=== PATIENT | female | born 1960 | race Caucasian/White ===

== ENCOUNTER 2023-12-04 15:46 | Outpatient (REF) | payer OTHER, SELFPAY ==
[2023-12-04 16:48] LABS: Estimated Average Glucose 146 mg/dL; Hemoglobin A1c % 6.7 % (<6.0)
[2023-12-04 17:31] LABS: TSH reflex Free T4 0.42 uIU/mL (0.32-4.0)
== END 2023-12-04 15:47 | disposition home or self-care (01) ==
LOC: HO.LAB 15:46
PROVIDERS: PCP Family Medicine; Visit Provider Family Medicine
DX: Z00.00 Encounter for general adult medical examination without abnormal findings (principal); E11.21 Type 2 diabetes mellitus with diabetic nephropathy; E03.9 Hypothyroidism, unspecified
CPT/HCPCS: 36415; 83036; 84443

== ENCOUNTER 2024-04-25 09:48 | Outpatient (REF) | payer OTHER, SELFPAY ==
[2024-04-25 11:04] LABS: Estimated Glomerular Filt Rate > 60
== END 2024-04-25 09:49 | disposition home or self-care (01) ==
LOC: HO.LAB 09:48
PROVIDERS: PCP Family Medicine; Visit Provider Physician Assistant Medical
DX: E11.9 Type 2 diabetes mellitus without complications (principal)
CPT/HCPCS: 36415; 82565

== ENCOUNTER 2024-05-24 09:02 | Outpatient (REF) | payer OTHER, SELFPAY ==
--- OUTSIDE RECORDS SUMMARY | 2024-05-24 09:11 | XMS_ITS ---
Author Organization [facility] Address [address] [place] [address] Care Team Providers Care Adjutant General Name Role Phone Vicente VALERA, Sabrina Primary Care Provider Dayanara Moreira [phone] REASON FOR VISIT cx ACETYLENE BURNER 11/04 Encounters Encounter Location Date Provider Diagnosis [facility] [address] [place] [address] 09/19/2023 Dayanara Tolentino Plan Of Treatment No Information Progress Notes * Irma MOOREDOB:1960 ( 63 yo F)Acc No.[id number]:09/19/2023 Patient:?Irma Moore :1960???Age:63 Y???Sex:Female Address:[address] [place] [address] * true * Date:? Generated for Mark haney/Amish/eTransmitting on:?05/24/2024 09:11 AM EST
--- OUTSIDE RECORDS SUMMARY | 2024-05-24 09:11 | XMS_ITS ---
Author Organization [facility] Address [address] [place] [address] Care Team Providers Care Watch Parts Inspector Name Role Phone Vicente VALERA, Sabrina Primary Care Provider Dayanara Moreira [phone] Encounters Encounter Location Date Provider Diagnosis [facility] [address] [place] [address] 11/05/2023 Dayanara Tolentino Plan Of Treatment No Information Progress Notes * Irma MOOREDOB:1960 ( 63 yo F)Acc No.[id number]:11/05/2023 Progress Notes Patient:?Irma MOORE Provider:?Dayanara Tolentino DPM :1960???Age:63 Y???Sex:Female D ate:11/05/2023 Address:[address] [place], [place] [id number] Pcp:Sabrina Zhang MD Subjective: * Chief Complaints: * ??? * Medical History:? Objective: * Vitals:? Assessment: Plan: * Treatment: * Images: * The named appointment provid er may or may not be the originator of this progress note, and it is not deemed complete until electronically signed by the appointment provider. Sign off status: Pending * Provider:?Dayanara Tolentino DPM Date:?2023 Generated for Mark haney/Amish/eTransmitting on:?05/24/2024 09:11 AM EST
--- OUTSIDE RECORDS SUMMARY | 2024-05-24 09:11 | XMS_ITS | Continuity of Care Document ---
Author Organization [facility] Address [address] [place] [address]- Care Team Providers Care Trim Operator Name Role Phone Vicente VALERA, Sabrina Harris Primary Care Physician Encounter [facility] Date(s): 03/27/24 - 04/26/24 [facility] [address] [place] [address] En[facility] Type: Triage Allergies, Adverse Reactions, Alerts No Known Allergies Medications Aspirin Tablet Refills 0, Maintenance, 11/01/16 7:52:32 AM EDT Start Date: 11/01/16 Status: Ordered Repeat number: 1 atorvastatin 40 mg oral tablet 1 tablet = 40 mg, By Mouth, Daily, 0 Refills, Maintenance Start Date: 11/01/16 Status: Ordered Repeat number: 1 FISH OIL FISH OIL, Refills 0, Tot. Refills 0, 02/17/08 1:04:18 PM EDT Start Date: 02/17/08 Status: Ordered Repeat number: 1 Fish Oil By Mouth, 0 Refills, Maintenance, 11/01/16 7:52:40 AM EDT Start Date: 11/01/16 Status: Ordered Repeat number: 1 Insulin Aspart FlexPen 100 units/mL injectable solution See Instructions, USE 26-30 UNITS SUBCUTANEOUSLY 3 TIMES A DAY BEFORE MEALS, # 30 mL, 5 Refills, Maintenance, 11/01/23 5:15:00 PM EDT, [facility] # 302, 158.75, cm, 11/01/23 15:37:00 EDT, Height Start Date: 11/01/23 Status: Ordered Quantity: 30.0 Unit: mL Repeat number: 6 levothyroxine 150 mcg (0.15 mg) oral tablet 1 tablet = 150 mcg, By Mouth, Daily, 0 Refills, Maintenance, 11/01/16 7:52:09 AM EDT Start Date: 11/01/16 Status: Ordered Repeat number: 1 lisinopril 20 mg oral tablet 1, tablet, By Mouth, Daily, # 90 tablet, Refills 1, Tot. Refills 1, 01/20/22 11:42:00 AM EDT, Route to Pharmacy Electronically, [facility] # 302, 158.75, cm, 10/04/21 15:12:00 EDT, Height Start Date: 01/20/22 Status: Ordered Quantity: 90.0 Unit: tablet Repeat number: 2 MetFORMIN (Eqv-Glucophage XR) 500 mg oral tablet, extended release 2 tablet, By Mouth, 2 times a day, ( IC FOR GLUCOPHAGE XR), # 120 tablet, 0 Refills, Maintenance, 03/24/24 9:53:00 AM EDT, [facility] #[id number], 158.75, cm, 11/01/23 15:37:00 EDT, Height Start Date: 03/24/24 Status: Ordered Quantity: 120.0 Unit: tablet Repeat number: 1 Toujeo SoloStar 300 units/mL subcutaneous solution See Instructions, 122 units Subcutaneous Injection Daily 90 days. E11.9, # 40.5 mL, 3 Refills, Maintenance, 11/01/23 5:13:00 PM EDT, Solution, [facility] # 302, 158.75, cm, 11/01/23 15:37:00 EDT, Height Start Date: 11/01/23 Status: Ordered Quantity: 40.5 Unit: mL Repeat number: 4 True metric test strips True metric test strips, See Instructions, # 120 each, Refills 11, Tot. Refills 11, Maintenance, Ptto check blood sugar 4x daily as directed for dx of E11.65, 09/06/22 1:36:00 PM EDT, Compound, 158.75, cm, 02/28/22 9:26:00 EDT, Height Start Date: 09/06/22 Status: Ordered Quantity: 120.0 Unit: each Repeat number: 12 True Metrix Blood Glucose Test In Vitro Strip True Metrix Blood Glucose Test In Vitro Strip, See Instructions, # 100 Unknown, 0 Refills, Maintenance, use to check blood sugar 4 times daily as directed, 12/15/23 1:48:00 PM EDT, 158.75, cm, 11/01/23 15:37:00 EDT, Height Start Date: 12/15/23 Status: Ordered Quantity: 100.0 Unit: Unknown Repeat number: 1 True Metrix Blood Glucose Test In Vitro Strip True Metrix Blood Glucose Test In Vitro Strip, See Instructions, # 100 Unknown, 0 Refills, Maintenance, use to check blood sugar 4 times daily as directed, 03/28/24 11:50:00 AM EDT, 158.75, cm, 11/01/23 15:37:00 EDT, Height Start Date: 03/28/24 Status: Ordered Quantity: 100.0 Unit: Unknown Repeat number: 1 True Metrix Blood Glucose Test In Vitro Strip True Metrix Blood Glucose Test In Vitro Strip, See Instructions, # 100 Unknown, 0 Refills, Maintenance, use to check blood sugar 4 times daily as directed, 02/15/24 7:39:00 PM EDT, 158.75, cm, 11/01/23 15:37:00 EDT, Height Start Date: 02/15/24 Status: Ordered Quantity: 100.0 Unit: Unknown Repeat number: 1 True Metrix Blood Glucose Test In Vitro Strip True Metrix Blood Glucose Test In Vitro Strip, See Instructions, # 100 Unknown, 0 Refills, Maintenance, use to check blood sugar 4 times daily as directed, 12/25/23 2:28:00 PM EDT, 158.75, cm, 11/01/23 15:37:00 EDT, Height Start Date: 12/25/23 Status: Ordered Quantity: 100.0 Unit: Unknown Repeat number: 1 True Metrix Blood Glucose Test In Vitro Strip True Metrix Blood Glucose Test In Vitro Strip, See Instructions, # 120 Unknown, 3 Refills, USE TO CHECK BLOOD SUGAR 4 TIMES A DAY DIRECTED, 158.75, cm, 10/04/21 15:12:00 EDT, Height Start Date: 01/17/22 Status: Ordered Quantity: 120.0 Unit: Unknown Repeat number: 1 True Metrix Blood Glucose Test In Vitro Strip True Metrix Blood Glucose Test In Vitro Strip, See Instructions, # 100 Unknown, 0 Refills, Maintenance, use to check blood sugar 4 times daily as directed, 11/12/23 2:52:00 PM EDT, 158.75, cm, 11/01/23 15:37:00 EDT, Height Start Date: 11/12/23 Status: Ordered Quantity: 100.0 Unit: Unknown Repeat number: 1 True metrix lancets True metrix lancets, See Instructions, # 120 each, Refills 11, Tot. Refills 11, Maintenance, Pt to check blood sugar 4x daily as directed for dx of E11.65, 02/28/22 11:59:00 AM EDT, Compound, 158.75, cm, 02/28/22 9:26:00 EDT, Height Start Date: 02/28/22 Status: Ordered Quantity: 120.0 Unit: each Repeat number: 12 TRUE PLUS PEN NEEDLES [id number] TRUE PLUS PEN NEEDLES [id number], See Instructions, # 150 each, Refills 6, Tot. Refills 6, Maintenance, Use pen needles to inject insulin 4x a day, E11.9, 07/05/20 1:37:00 PM EST, Supply, 158.75, cm, 01/22/20 8:55:00 EDT, Height Start Date: 07/05/20 Status: Ordered Quantity: 150.0 Unit: each Repeat number: 7 TRUEplus 5-Bevel Pen [place] Miscellaneous 31G X 5 MM TRUEplus 5-Bevel Pen [place] Miscellaneous 31G X 5 MM, See Instructions, # 200 Unknown, 6 Refills, Maintenance, USE PEN NEEDLE TO INJECT INSULIN UP TO FOUR TIMES A DAY, 07/10/22 3:40:00 PM EST, 158.75, cm, 02/28/22 9:26:00 EDT, Height Start Date: 07/10/22 Status: Ordered Quantity: 200.0 Unit: Unknown Repeat number: 1 Trulicity Pen 3 mg/0.5 mL subcutaneous solution See Instructions, inject 0.5ml subcutaneously every week, # 2 mL, 4 Refills, Maintenance, 03/27/24 12:40:00 PM EDT, [facility] # 302, 158.75, cm, 11/01/23 15:37:00 EDT, Height Start Date: 03/27/24 Status: Ordered Quantity: 2.0 Unit: mL Repeat number: 5 Problem List Condition Confirmation Course Effective Dates Status H ealth Status Informant Hyperlipidemia Confirmed Active Hypertension Confirmed Active Hypothyroidism Confirmed Active Severe obesity (BMI 35.0-39.9) with comorbidity Confirmed Active Type 2 diabetes mellitus Confirmed Active Patient Care team information Care Team Personnel Name: Sabrina Zhang MD Position: S Physician - Primary Care Member Role: PCP Address: [address] [place] [address] Telecom: Care Team Related Persons Name: VALENTIN MOORE Insurance Providers Guarantor name: ZOIEBETH MOORE [employer]ux Plan Information #: 1 Payer: [employer] NON HMO PLANS Member Number: NA Policy Number: NA Group Number: NA
--- OUTSIDE RECORDS SUMMARY | 2024-05-24 09:11 | XMS_ITS | Continuity of Care Document ---
Author Organization [facility] Address [address] [place] [address]- Care Team Providers Care Emd Special Education Teacher Name Role Phone Vicente VALERA, Sabrina Harris Primary Care Physician [phone] Encounter [facility] Date(s): 03/24/24 - 04/23/24 [facility] [address] [place] [address] Encounter Type: Triage Allergies, Adverse Reactions, Alerts [...] 5 Refills, Maintenance, 11/01/23 5:15:00 PM EDT, [facility] # [facility], 158.75, cm, 11/01/23 15:37:00 [...] 11:42:00 AM EDT, Route to Pharmacy Electronically, [facility] # 302, 158.75, cm, 10/04/21 15:12:00 EDT, Height Start Date: 01/20/22 Status: Ordered Quantity: 90.0 Unit: tablet Repeat number: 2 MetFORMIN (Eqv-Glucophage XR) 500 mg oral tablet, extended release 2 tablet, By Mouth, 2 times a day, ( IC FOR GLUCOPHAGE XR), # 120 tablet, 0 Refills, Maintenance, 03/24/24 9:53:00 AM EDT, [facility] #[id number], 158.75, cm, 11/01/23 15:37:00 EDT, Height Start Date: 03/24/24 Status: Ordered Quantity: 120.0 Unit: tablet Repeat number: 1 Toujeo SoloStar 300 units/mL subcutaneous solution See Instructions, 122 units Subcutaneous Injection Daily 90 days. E11.9, # 40.5 mL, 3 Refills, Maintenance, 11/01/23 5:13:00 PM EDT, Solution, [facility] # 302, 158.75, cm, 11/01/23 15:37:00 [...] Repeat number: 12 TRUE PLUS PEN NEEDLES [id number] TRUE PLUS PEN NEEDLES [id number], See Instructions, # 150 each, Refills 6, Tot. Refills 6, Maintenance, Use pen needles to inject insulin 4x a day, E11.9, 07/05/20 1:37:00 PM EST, Supply, 158.75, cm, 01/22/20 8:55:00 EDT, Height Start Date: 07/05/20 Status: Ordered Quantity: 150.0 Unit: each Repeat number: 7 TRUEplus 5-Bevel Pen [place] Miscellaneous 31G X 5 MM TRUEplus 5-Bevel Pen [place] Miscellaneous 31G X 5 MM, See Instructions, [...] 4 Refills, Maintenance, 03/27/24 12:40:00 PM EDT, [facility] # 302, 158.75, cm, 11/01/23 15:37:00 [...] - Primary Care Member Role: PCP Address: [address] [place] [address] Telecom: Care Team Related Persons Name: VALENTIN MOORE Insurance Providers Guarantor name: ZOIEBETH MOORE [employer] Plan Information #: 1 Payer: [employer] NON HMO PLANS Member Number: NA Policy Number: NA Group Number: NA
--- OUTSIDE RECORDS SUMMARY | 2024-05-24 09:11 | XMS_ITS | Patient Health Record ---
Author Organization [facility] Address [address] [place] [address] Care Team Providers Care Towboat Pilot Name Role Phone Vicente VALERA, Sabrina Primary Care Provider Dayanara Moreira Unavailable [phone] Reason For Referral No Information Encounters Encounter Location Date Provider Diagnosis [facility] [address] [place] [address] 09/19/2023 Dayanara Tolentino Plan Of Treatment No Information Insurance Providers Payer Name Payer Address Payer Phone Subscriber Number Group Number Insured Name Patient Relationship to Insured Coverage Start Date Coverage End Date [employer] [address] [place] [address] [id number] Irma Haji Self - patient is the insured
[2024-05-24 10:16] LABS: Estimated Average Glucose 151 mg/dL; Hemoglobin A1C 177.2658 umol/L; Hemoglobin A1c % 6.9 % (<6.0); Total Hemoglobin (HGBA1C) 3400.9381 umol/L
[2024-05-24 11:36] LABS: Alanine Aminotransferase 53 U/L (0-31); Anion Gap 15 (12-20); Aspartate Amino Transferase 49 U/L (5-31); Blood Urea Nitrogen 14 mg/dL (9-16); Calcium 9.6 mg/dL (8.4-10.2); Carbon Dioxide 25 mmol/L (22-29); Chloride 108 mmol/L (96-108); Cholesterol 143 mg/dL (<200); Estimated Glomerular Filt Rate > 60; Glucose Random 114 mg/dL (60-115); HDL Cholesterol 26 mg/dL (>40); LDL Cholesterol Calculated 70 mg/dL (<100); Potassium 4.8 mmol/L (3.3-5.1); Sodium 143 mmol/L (135-145); Triglycerides 237 mg/dL (<150)
[2024-05-24 11:42] LABS: TSH reflex Free T4 8.44 uIU/mL (0.32-4.0)
[2024-05-24 11:47] LABS: Vitamin B12 299 pg/mL (200-900)
[2024-05-24 12:29] LABS: Free T4 (Free Thyroxine) 1.12 ng/dL (0.71-1.85)
== END 2024-05-24 09:03 | disposition home or self-care (01) ==
LOC: HO.LAB 09:02
PROVIDERS: PCP Family Medicine; Visit Provider Family Medicine
DX: E78.00 Pure hypercholesterolemia, unspecified (principal); E11.21 Type 2 diabetes mellitus with diabetic nephropathy; E03.9 Hypothyroidism, unspecified
CPT/HCPCS: 36415; 80048; 80061; 82607; 83036; 84439; 84443; 84450; 84460

== ENCOUNTER 2024-07-17 15:50 | Outpatient (REF) | payer OTHER, SELFPAY ==
--- OUTSIDE RECORDS SUMMARY | 2024-07-17 16:44 | XMS_ITS ---
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 Generated for Mark haney/Amish/eTransmitting on:?07/17/2024 04:44 PM EST
--- OUTSIDE RECORDS SUMMARY | 2024-07-17 16:44 | XMS_ITS | Clinical Summary ---
Author Organization [facility] Address [address] [place] [address] Phone Care Team Providers Care National Van Owner Operator Name Role Phone Sabrina Zhang MD Primary Care Provider [phone] Allergies No known active allergies Medications magnesium 250 mg tablet Take by mouth. Activ e multivitamin (MULTIPLE VITAMINS ORAL) Take 1 Tab by mouth daily. Active zinc gluconate 30 mg tablet Take by mouth. Ac tive vitamin C tablet Take 1 Tablet by mouth daily Active atorvastatin (LIPITOR) 40 mg tablet TAKE ONE TABLET BY MOUTH ONCE DAILY Active cholecalciferol (VITAMIN D-3) 50 mcg (2,000 unit) tablet Take by mouth. Activ e insulin aspart (NovoLOG U-100 Insulin aspart) 100 unit/mL injection Inject 24 Units into the skin 3 times daily (before meals). Active insulin aspart (NovoLOG) 100 unit/mL injection Inject as directed. Active insulin glargine (LANTUS) 100 unit/mL injection 100 Units/mL. INJECT 78 UNIT BEDTIME Active insulin glargine U-300 (Toujeo SoloStar U-300 Insulin) 300 unit/mL (1.5 mL) CONCENTRATED injection pen Inject into the skin. Active levothyroxine (SYNTHROID, LEVOTHROID) 150 mcg tablet TAKE 1 TABLET BY MOUTH ONCE A DAY EXCEPT TAKE AN EXTRA 1/2 TABLET 3 TIMES A WEEK Active lisinopriL (PRINIVIL,ZESTRI L) 10 mg tablet 2 tablets (20 mg total). Active metFORMIN (GLUCOPHAGE) 500 mg tablet Take 1,000 mg by mouth 2 times daily. Active omega-3 acid ethyl esters (LOVAZA) 1 gram capsule Take 1,000 mg by mouth daily. Active polyethylene glycol (Golytely) 236-22.74-6.74 -5.86 gram solution Take 4L by mouth once for one dose. May substitue any PEG. Starting at 6PM the night before your procedure drink 1 8oz glasses at your own pace until you complete half of the gallon. Finish 2nd half of the gallon 5 hours before your procedure. 4000 mL 4 Active bisacodyL (DULCOLAX) 5 mg EC tablet Take 2 tablets by mouth right before beginning bowel prep. See instructions provided by the office 2 tablet 4 Active dulaglutide (Trulicity) 3 mg/0.5 mL pen injector injection Inject 0.5 mL (3 mg total) under the skin every 7 (seven) days. Active Active Problems Problem Noted Date Diagnosed Date Proteinuria 04/24/2018 Hypercholesterolemia 11/26/2017 Hypothyroidism 11/26/2017 Type 2 diabetes mellitus with renal manifestatio ns 11/26/2017 Internal hemorrhoids 06/24/2013 Stress incontinence in female 02/03/2013 Rectocele 05/13/2011 Dermatophytosis of nail 07/05/2010 Encounters Date Type Department Care Team Description 04/28/2024 7:35 AM EST Anesthesia Event [facility] Endoscopy [address] [place] [address] Dylan Thomas MD McAdams, Megan, CRNA 04/28/2024 6:50 AM EST - 04/28/2024 11:59 PM EST Hospital Encounter [facility] Endoscopy [address] [place] [address] Kenisha Crews DO Piela, Robert C, MD Encounter for screening for malignant neoplasm of colon Discharge Disposition: Home or Self Care from Last 3 Months Immunizations Name Administration Dates Next Due Influenza trivalent, 0.5mL, preservative free (Fluarix; FluLaval; Fluzone) ages 6mo and older (Afluria) 3 years and older 03/04/2015 Pneumococcal polysaccharide 23 valent (Pneumovax 23) 2yo and older 07/26/2016 Tdap Tetanus diptheria acell ular pertussis (Boostrix; Adacel) 7yo and older 07/05/2010 Surgical History Surgery Date Site/Laterality Comments SECTION PROCEDURE: HISTORICAL HAND SHOE CUTTER SURGERY PROCEDURE: [place] UNLISTED PROCEDURE HANDS/FINGERS; COMMENT: TRIGGER FINGER RELEASE. WISDOM TOOTH EXTRACTION PROCEDURE: HISTORICAL WISDOM TEETH EXTRACTION Medical History Medical History Date Comments Dermatophytosis of nail 07/05/2010 DX:[place] tophytosis of nail Hypercholesterolemia 11/26/2017 DX:Hypercho lesterolemia Hypothyroidism 11/26/2017 DX:Hypothyroidis m Internal hemorrhoids 06/24/2013 DX:Internal hemorrhoids Rectocele 05/13/2011 DX:Rectocele Stress incontinence in female 02/03/2013 DX :Stress incontinence in female Proteinuria 04/24/2018 DX:Proteinuria Type 2 diabetes mellitus wit h renal manifestations (CMS/HCC) 11/26/2017 DX:Type 2 diabetes mellitus with renal manifestations (HCC) Family History Medical History Relation Name Comments Diabetes Brother 1 Diabetes Brother 2 Brain cancer Brother 3 Heart attack Father diabetes,CAD, Diabetes Maternal Grandmother Stroke Mother DIABETES, HTN Diabetes Sister Relation Name Status Comments Brother 1 Alive Brother 2 Alive Brother 3 Father Maternal Grandfather Maternal Grandmother Mother Paternal Grandfather Paternal Grandmother Sister Alive Social History Tobacco Use Types Packs/Day Years Used Date Smoking Tobacco: Never Smokeless Tobacco: Never Alcohol Use Standard Drinks/Week Comments No 0 (1 standard drink = 0.6 oz pur e alcohol) Interpersonal Safety Answer Date Record ed Physical Abuse 04/28/2024 Verbal Abuse 04/28/2024 Comments No Sex and Gender Information Value Date Recorded Sex Assigned at Not on file Legal Sex Female 8:25 PM EST Gender Identity Not on file Sexual Orientation Not on file Obstetrics History Last Filed Vital Signs Vital Sign Reading Time Taken Comments Blood Pressure 131/66 04/28/2024 8:13 AM EST Pulse 91 04/28/2024 8:13 AM EST Temperature 36.4 ??C (97.6 ??F) 04/28/2024 7:24 AM ES T Respiratory Rate 17 04/28/2024 8:13 AM EST Oxygen Saturation 96% 04/28/2024 8:13 AM EST Inhaled Oxygen Concentration - - Weight 97.5 kg (215 lb) 04/28/2024 7:24 AM EST Height 160 cm (5' 3 ) 04/28/2024 7:24 AM EST Body Mass Index 38.09 04/28/2024 7:24 AM EST Plan of Treatment Health Maintenance Due Date Last Done Comments Diabetes: Annual GFR (Glomerular Filtration Rate) 1960 Diabetes: Annual Foot Exam 1970 Diabetes: Annual Retina Eye Exam 1970 Pneumococcal Vaccine: 50+ Years (2 of 2 - PCV) 07/26/2017 07/26/2016 Pneumococcal Vaccine: Pediatrics (0 to 5 Years) and At-Risk Patients (6 to 64 Years) (2 of 2 - PCV) 07/26/2017 07/26/2016 Cervical Cancer Screening: Pap Smear 03/27/2020 03/27/2017 RSV Immunization Patients 60+ Years Old (1 - Risk 60-74 years 1-dose series) 2020 Cholesterol Screening (Lipid Panel) 04/29/2022 Depression Screening 04/29/2022 HIV Screening 04/29/2022 Hepatitis C Screening 04/29/2022 Social Influencers of Health Screening 04/29/2022 Diabetes: Annual Urine Albumin-Creatinine Ratio (uACR) 05/13/2022 Diabetes: Blood Sugar Control Test (HGBA1C) 05/13/2022 COVID-19 Vaccine ( season) 2024 Influenza Vaccine (#1) 2024 , 05/16/2022, 02/09/2021, Additional history exists Hypertension/CHF/CAD Annual BMP Blood Test 04/28/2024 Breast Cancer Screening 02/06/2026 02/07/20 24, 01/01/2023, 08/24/2021, Additional history exists Colorectal Cancer Screening: Colonoscopy 04/28/2027 04/28/2024 DTaP,Tdap,and Td Vaccines (3 - Td or Tdap) 11/27/2032 11/27/2022, 07/05/2010 Zoster Vaccines Completed 06/22/2023, 04/06/2023 HIB Vaccines Aged Out No longer eligi ble based on patient's age to complete this topic HPV Vaccines Aged Out No longer eligi ble based on patient's age to complete this topic Hepatitis A Vaccines Aged Out No long er eligible based on patient's age to complete this topic Hepatitis B Vaccines Aged Out No long er eligible based on patient's age to complete this topic IPV Vaccines Aged Out No longer eligi ble based on patient's age to complete this topic MMR Vaccines Aged Out No longer eligi ble based on patient's age to complete this topic Meningococcal ACWY Vaccine Aged Out N o longer eligible based on patient's age to complete this topic Meningococcal B Vacine Aged Out No lo nger eligible based on patient's age to complete this topic RSV Immunization Patients Under 20 months Aged Out No longer eligible based on patient's age to complete this topic Varicella Vaccines Aged Out No longer eligible based on patient's age to complete this topic Procedures Procedure Name Priority Date/Time Associated Diagnosis Comments COLONOSCOPY Routine 04/28/2024 7:52 AM EST Encounter for screening for malignant neoplasm of colon TISSUE EXAM Routine 04/28/2024 7:44 AM EST Encounter for screening for malignant neoplasm of colon ALEX SCREENING DIGITAL Routine 02/07/2024 9:06 AM EDT Encounter for screening mammogram for malignant neoplasm of breast HM PAP SMEAR Routine 03/27/2017 from Last 3 Months or Most Recently Relevant to Health Maintenance Results * COLONOSCOPY Anesthesia - MAC; [facility] ENDOSCOPY (04/28/2024 7:52 AM EST) Anatomical Region Laterality Modality Endoscopy 04/28/2024 7:37 AM EST Impressions 04/28/2024 7:52 AM EST - Hemorrhoids found on perianal exam. ? - Three 7 to 10 mm polyps in the ascending colon, ? removed with a cold snare. Resected and retrieved. ? - The entire examined colon is normal on direct and ? retroflexion views. Recommendation: ?- - Discharge patient to home. ? - High fiber diet. ? - Continue present medications. ? - Await pathology results. ? - Repeat colonoscopy for surveillance based on ? pathology results. Narrative 04/28/2024 7:52 AM EST [facility] GI Patient Name: Zoie Moore Procedure Date: 04/28/2024 7:37 AM Date of : 1960 Age: 63 Gender: Female Note Status: Finalized Attending MD: Kenisha Crews DO, [id number] Procedure Date No Time: 04/28/2024 Procedure: ? Colonoscopy Indications: ? Screening for colorectal malignant neoplasm Providers: ? Kenisha Crews DO Referring MD: ?Kenisha Crews DO Medicines: ? Monitored Anesthesia Care Complications: ? No immediate complications. Estimated blood loss: ? Minimal. Estimated Blood Loss: ? Estimated blood loss was minimal. Procedure: ? Pre-Anesthesia Assessment: ? - - Prior to the procedure, a History and Physical was ? performed, and patient medications and allergies were ? reviewed. The patient is competent. The risks and ? benefits of the procedure and the sedation options and ? risks were discussed with the patient. All questions ? were answered and informed consent was obtained. ? Patient identification and proposed procedure were ? verified by the physician, the nurse, the ? anesthesiologist, the diabetes solutions specialist and the video game technician ? in the pre-procedure area in the endoscopy suite. ? Mental Status Examination: alert and oriented. Airway ? Examination: normal oropharyngeal airway and neck ? mobility. Respiratory Examination: clear to ? auscultation. CV Examination: normal. Prophylactic ? Antibiotics: The patient does not require prophylactic ? antibiotics. Prior Anticoagulants: The patient has ? taken no anticoagulant or antiplatelet agents. ASA ? Grade Assessment: II - A patient with severe systemic ? disease. After reviewing the risks and benefits, the ? patient was deemed in satisfactory condition to ? undergo the procedure. The anesthesia plan was to use ? monitored anesthesia care (MAC). Immediately prior to ? administration of medications, the patient was ? re-assessed for adequacy to receive sedatives. The ? heart rate, respiratory rate, oxygen saturations, ? blood pressure, adequacy of pulmonary ventilation, and ? response to care were monitored throughout the ? procedure. The physical status of the patient was ? re-assessed after the procedure. ? After I obtained informed consent, the scope was ? passed under direct vision. Throughout the procedure, ? the patient's blood pressure, pulse, and oxygen ? saturations were monitored continuously. The ? Colonoscope was introduced through the anus and ? advanced to the cecum, identified by appendiceal ? orifice and ileocecal valve. The colonoscopy was ? performed without difficulty. The patient tolerated ? the procedure well. The quality of the bowel ? preparation was good. Findings: ?Hemorrhoids were found on perianal exam. ? Three sessile polyps were found in the ascending ? colon. The polyps were 7 to 10 mm in size. These ? polyps were removed with a cold snare. Resection and ? retrieval were complete. Estimated blood loss was ? minimal. ? The entire examined colon appeared normal on direct ? and retroflexion views. Procedure Code(s): ? --- Professional --- ? 21188, Colonoscopy, flexible; with removal of ? tumor(s), polyp(s), or other lesion(s) by snare ? technique Diagnosis Code(s): ? --- Professional --- ? Z12.11, Encounter for screening for malignant neoplasm ? of colon ? K64.9, Unspecified hemorrhoids ? D12.2, Benign neoplasm of ascending colon CPT copyright 2020 [employer]. All rights reserved. The codes documented in this report are preliminary and upon orthopedic coder review may be revised to meet current compliance requirements. KENISHA Crews DO 04/28/2024 7:52:14 AM This report has been signed electronically.Kenisha Crews DO Number of Addenda: 0 Note Initiated On: 04/28/2024 7:37 AM Scope Withdrawal Time: 0 hours 6 minutes 31 seconds Scope In: 7:41:16 AM Scope Out: 7:50:56 AM ? Endoscopy Department at [facility] - [address] [place] [address], ? [place] [address] Procedure Note Kenisha Crews DO - 04/28/2024 [facility] GI Patient Name: Zoie Moore Procedure Date: 04/28/2024 7:37 AM Date of : 1960 Age: 63 Gender: Female Note Status: Finalized Attending MD: Kenisha Crews DO, [id number] Procedure Date No Time: 04/28/2024 Procedure: Colonoscopy Indications: Screening for colorectal malignant neoplasm Providers: Kenisha Crews DO Referring MD: Kenisha Crews DO Medicines: Monitored Anesthesia Care Complications: No immediate complications. Estimated blood loss: Minimal. Estimated Blood Loss: Estimated blood loss was minimal. Procedure: Pre-Anesthesia Assessment: - - Prior to the procedure, a History and Physicalwas performed, and patient medications and allergieswere reviewed. The patient is competent. The risks and benefits of the procedure and the sedation optionsand risks were discussed with the patient. Allquestions were answered and informed consent was obtained. Patient identification and proposed procedure were verified by the physician, the nurse, the anesthesiologist, the diabetes solutions specialist and thetechnician in the pre-procedure area in the endoscopy suite. Mental Status Examination: alert and oriented.Airway Examination: normal oropharyngeal airway and neck mobility. Respiratory Examination: clear to auscultation. CV Examination: normal. Prophylactic Antibiotics: The patient does not requireprophylactic antibiotics. Prior Anticoagulants: The patient has taken no anticoagulant or antiplatelet agents. ASA Grade Assessment: II - A patient with severesystemic disease. After reviewing the risks and benefits,the patient was deemed in satisfactory condition to undergo the procedure. The anesthesia plan was touse monitored anesthesia care (MAC). Immediately priorto administration of medications, the patient was re-assessed for adequacy to receive sedatives. The heart rate, respiratory rate, oxygen saturations, blood pressure, adequacy of pulmonary ventilation,and response to care were monitored throughout the procedure. The physical status of the patient was re-assessed after the procedure. After I obtained informed consent, the scope was passed under direct vision. Throughout theprocedure, the patient's blood pressure, pulse, and oxygen saturations were monitored continuously. The Colonoscope was introduced through the anus and advanced to the cecum, identified by appendiceal orifice and ileocecal valve. The colonoscopy was performed without difficulty. The patient tolerated the procedure well. The quality of the bowel preparation was good. Findings: Hemorrhoids were found on perianal exam. Three sessile polyps were found in the ascending colon. The polyps were 7 to 10 mm in size. These polyps were removed with a cold snare. Resectionand retrieval were complete. Estimated blood loss was minimal. The entire examined colon appeared normal on direct and retroflexion views. Procedure Code(s): --- Professional --- 70581, Colonoscopy, flexible; with removal of tumor(s), polyp(s), or other lesion(s) by snare technique Diagnosis Code(s): --- Professional --- Z12.11, Encounter for screening for malignantneoplasm of colon K64.9, Unspecified hemorrhoids D12.2, Benign neoplasm of ascending colon CPT copyright 2020 [employer]. All rights reserved. The codes documented in this report are preliminary and upon orthopedic coder reviewmay be revised to meet current compliance requirements. KENISHA Crews DO 04/28/2024 7:52:14 AM This report has been signed electronically.Kenisha Crews DO Number of Addenda: 0 Note Initiated On: 04/28/2024 7:37 AM Scope Withdrawal Time: 0 hours 6 minutes 31 seconds Scope In: 7:41:16 AM Scope Out: 7:50:56 AM Endoscopy Department at [facility] - [address] [place] [id number] IMPRESSION: - Hemorrhoids found on perianal exam. - Three 7 to 10 mm polyps in the ascending colon, removed with a cold snare. Resected andretrieved. - The entire examined colon is normal on direct and retroflexion views. Recommendation: - - Discharge patient to home. - High fiber diet. - Continue present medications. - Await pathology results. - Repeat colonoscopy for surveillance based on pathology results. Kenisha Crews DO GI~PROCEDURE ORDERABLES Final Re sult * Tissue exam (04/28/2024 7:44 AM EST) Final Diagnosis A. Large Intestine, Right/Ascendin g Colon, polyps x3: - Tubular adenoma(s). Note: Four of nine tissue pieces show adenomatous changes. 04/29/2024 9:48 AM EST [facility] Gross Description A. Large Intestine, Right/Ascendin g Colon, polyp X3: Labeled ascending colon polyp x 3 . Received in formalin are eight irregular tabares mucosal tissue fragments, ranging from 0.2 cm to 0.5 cm in greatest dimension, which are wrapped in paper and submitted in toto in two cassettes, three pieces and five pieces, respectively, multiple levels on each slide. RAYMUNDO 04/29/2024 9:48 AM EST [facility] Disclaimer Unless otherwise specified, all tissue is 10% NB formalin fixed and paraffin embedded. 04/29/2024 9:48 AM EST [facility] Tissue Ascending colon structure / Unknown 04/28/2024 7:44 AM EST 04/28/2024 10:47 AM EST us Kenisha Mars [facility] PATHOLOGY ORDERABLES Final R esult [facility] H[facility] LAB [address] [place] [address], * ALEX SCREENING DIGITAL (02/07/2024 9:06 AM EDT) Anatomical Region Laterality Modality Mammography 02/06/2024 12:2 2 PM EDT Narrative 02/07/2024 9:06 AM EDT [facility] Diagnostic Imaging Department [address] [place] [address] Patient: ??ZOIE MOORE ?/Age/Sex: 1960 - 63 - F Unit#: ??[id number] ? Location/Status: ??SPDIMAM/REG CLI ? Mnemonic/Ordering Site: ??DIGSC/SPMAM Ordering Physician: ??SABRINA ZHANG MD Alex Screening Digital - 02/06/24 - 1607 Report Status:Signed EXAM: Alex Screening Digital EXAM DATE AND TIME: 02/06/2024 4:07 PM HISTORY: ??Screening. COMPARISON: ??01/01/23, 08/24/21, 07/05/19 TECHNIQUE: Bilateral digital breast tomosynthesis was performed in the CC and MLO projections. Computer aided detection with Screen 3D 3.1 was employed. TISSUE DENSITY: a. The breasts are almost entirely fatty. FINDINGS: No suspicious masses, grouped microcalcifications, or areas of architectural distortion are seen. Skin calcifications are present. The vascularity is unremarkable. IMPRESSION: Stable mammographic appearance of the breasts. ??No evidence of malignancy is seen. A negative mammogram in the presence of a clinically suspicious palpable abnormality does not preclude the possibility of malignancy or alter the indications for biopsy. BI-RADS: ??Category 2: Benign RECOMMENDATION(S): 1: Routine screening mammogram BILATERAL in 1 year. Mammogram performed at [facility] [address] [place] [address] Dictating Physician: ??SUSAN MANUEL MD Electronically Signed by: ??SUSAN MANUEL MD Dic Date/Time: ??02/07/24904 Sign date/Time: ??02/07/24905 Procedure Note Susan Manuel MD - 03/12/2024 [facility] Diagnostic Imaging Department [address] [place] [address] Patient: ZOIE MOORE D.O.B./Age/Sex: 1960 - 63 - F Unit#: [id number] [facility] Mnemonic/Ordering Site: [facility] Ordering Physician: SABRINA ZHANG MD [facility] Screening Digital - 02/06/24 - 1607 Report Status:Signed EXAM: [facility] Screening Digital EXAM DATE AND TIME: 02/06/2024 4:07 PM HISTORY: Screening. COMPARISON: 01/01/23, 08/24/21, 07/05/19 TECHNIQUE: Bilateral digital breast tomosynthesis was performed in the CCand MLO projections. Computer aided detection with iCAD [employer] AI 3D 3.1was employed. TISSUE DENSITY: a. The breasts are almost entirely fatty. FINDINGS: No suspicious masses, grouped microcalcifications, or areas ofarchitectural distortion are seen. Skin calcifications are present. The vascularity is unremarkable. IMPRESSION: Stable mammographic appearance of the breasts. No evidence of malignancyis seen. A negative mammogram in the presence of a clinically suspicious palpable abnormality does not preclude the possibility of malignancy or alter the indications for biopsy. BI-RADS: Category 2: Benign RECOMMENDATION(S): 1: Routine screening mammogram BILATERAL in 1 year. Mammogram performed at [facility] [place] [address] Dictating Physician: SUSAN MANUEL MD Electronically Signed by: SUSAN MANUEL MD Dic Date/Time: 02/07/24 09 Sign date/Time: 02/07/24905 Sabrina Zhang MD IMG BI PROCEDURES Final Res ult * Hm Pap Smear (03/27/2017) HM Pap smear no interpretation abstracted Historical Provider HEALTH MAINTENANCE Final Result from Last 3 Months or Most Recently Relevant to Health Maintenance Insurance [employer] Care Teams National Van Owner Operator Relationship Specialty Start Date End Date Sabrina Zhang MD PCP - General Internal Medicine 04/16/24
--- OUTSIDE RECORDS SUMMARY | 2024-07-17 16:44 | XMS_ITS ---
Author Organization [facility] Address [address] [place] [address] Care Team Providers Care Agricultural Equipment Test Engineer Name Role Phone Vicente VALERA, Sabrina Primary Care Provider Dayanara Moreira [phone] Encounters Encounter Location Date Provider Diagnosis [facility] [address] [place] [address] 11/05/2023 Dayanara Tolentino Plan Of Treatment No Information Progress Notes * Irma MOOREDOB:1960 ( 64 yo F)Acc No.[id number]:11/05/2023 Progress Notes Patient:?Irma MOORE Provider:?Dayanara Tolentino DPM :1960???Age:63 Y???Sex:Female D ate:11/05/2023 Address:[address] [place], [place] [id number] Pcp:Sabrina Zhang MD Subjective: * Chief Complaints: [...] Tolentino DPM Date:?2023 Generated for Mark haney/Amish/eTransmitting on:?07/17/2024 04:44 PM EST
--- OUTSIDE RECORDS SUMMARY | 2024-07-17 16:45 | XMS_ITS | Patient Health Record ---
Author Organization [facility] Address [address] [place] [address] Care Team Providers Care Italian Teacher Name Role Phone Vicente VALERA, Sabrina Primary Care Provider Dayanara Moreira Unavailable [phone] Reason For Referral No Information Encounters Encounter Location Date Provider Diagnosis [facility] [address] [place] [address] 09/19/2023 Dayanara Tolentino Plan Of Treatment No Information Insurance Providers Payer Name Payer Address Payer Phone Subscriber Number Group Number Insured Name Patient Relationship to Insured Coverage Start Date Coverage End Date [employer] [address] [place] [phone] [id number] Irma Haji Self - patient is the insured
== END 2024-07-17 15:51 | disposition home or self-care (01) ==
LOC: HO.LAB 15:50
PROVIDERS: PCP Family Medicine; Visit Provider Family Medicine
DX: E03.9 Hypothyroidism, unspecified (principal)
CPT/HCPCS: 36415; 84443

== ENCOUNTER 2024-08-04 07:54 | Outpatient (REF) | payer OTHER, SELFPAY ==
--- OUTSIDE RECORDS SUMMARY | 2024-08-04 10:11 | XMS_ITS | Clinical Summary ---
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 WISDOM TOOTH EXTRACTION PROCEDURE: HISTORICAL WISDOM TEETH EXTRACTION Medical History Medical History Date Comments Dermatophytosis of nail 07/05/2010 DX:[place] tophytosis of nail Hypercholesterolemia 11/26/2017 DX:Hypercho lesterolemia [...] Maintenance Results * COLONOSCOPY Anesthesia - MAC; [facility] ENDOSCOPY (04/28/2024 7:52 AM EST) Anatomical [...] pathology results. Narrative 04/28/2024 7:52 AM EST [facility] GI Patient Name: Irma Moore Procedure Date: 04/28/2024 7:37 AM Date of : 1960 Age: 63 Gender: Female Note Status: Finalized Attending MD: Kenisha Crews DO, [id number] Procedure Date No Time: 04/28/2024 Procedure: ? [...] physician, the nurse, the ? anesthesiologist, the pet technologist and the tool rental technician ? in the pre-procedure area in [...] Procedure Code(s): ? --- Professional --- ? 00653, Colonoscopy, flexible; with removal of ? tumor(s), polyp(s), or other lesion(s) by snare ? technique Diagnosis Code(s): ? --- Professional --- ? Z12.11, Encounter for screening for malignant neoplasm ? of colon ? K64.9, Unspecified hemorrhoids ? D12.2, Benign neoplasm of ascending colon CPT copyright 2020 [employer] [employer]. All rights reserved. The codes documented in this report are preliminary and upon preschool program director review may be revised to meet current compliance requirements. KENISHA Crews DO 04/28/2024 7:52:14 AM This report has been signed electronically.Kenisha Crews DO Number of Addenda: 0 Note Initiated On: 04/28/2024 7:37 AM Scope Withdrawal Time: 0 hours 6 minutes 31 seconds Scope In: 7:41:16 AM Scope Out: 7:50:56 AM ? Endoscopy Department at [facility] - [address] [place] [address], ? [place] [address] Procedure Note Kenisha Crews DO - 04/28/2024 [facility] GI Patient Name: Irma Moore Procedure Date: 04/28/2024 7:37 AM Date of : 1960 Age: 63 Gender: Female Note Status: Finalized Attending MD: Kenisha Crews DO, [id number] Procedure Date No Time: 04/28/2024 Procedure: Colonoscopy [...] the physician, the nurse, the anesthesiologist, the pet technologist and thetechnician in the pre-procedure area in [...] retroflexion views. Procedure Code(s): --- Professional --- 94240, Colonoscopy, flexible; with removal of tumor(s), polyp(s), or other lesion(s) by snare technique Diagnosis Code(s): --- Professional --- Z12.11, Encounter for screening for malignantneoplasm of colon K64.9, Unspecified hemorrhoids D12.2, Benign neoplasm of ascending colon CPT copyright 2020 [employer]. All rights reserved. The codes documented in this report are preliminary and upon preschool program director reviewmay be revised to meet current compliance requirements. KENISHA Crews DO 04/28/2024 7:52:14 AM This report has been signed electronically.Kenisha Crews DO Number of Addenda: 0 Note Initiated On: 04/28/2024 7:37 AM Scope Withdrawal Time: 0 hours 6 minutes 31 seconds Scope In: 7:41:16 AM Scope Out: 7:50:56 AM Endoscopy Department at [facility] - [address] [place] [phone] IMPRESSION: - Hemorrhoids found on perianal exam. [...] PM EDT Narrative 02/07/2024 9:06 AM EDT [facility] Diagnostic Imaging Department [address] [place] [address] Patient: ??IRMA MOORE ?/Age/Sex: 1960 - 63 - F Unit#: ??[id number] ? Location/Status: ??SPDIMAM/REG CLI ? Mnemonic/Ordering Site: ??DIGSC/SPMAM Ordering Physician: ??CHRISTINA ZHANG MD Alex Screening Digital - 02/06/24 - 1607 Report Status:Signed EXAM: Alex Screening Digital EXAM DATE AND TIME: 02/06/2024 4:07 PM HISTORY: ??Screening. COMPARISON: ??01/01/23, 08/24/21, 07/05/19 TECHNIQUE: Bilateral digital breast tomosynthesis was performed in the CC and MLO projections. Computer aided detection with [employer] 3D 3.1 was employed. TISSUE DENSITY: a. [...] Mammogram performed at [facility] [address] [place] [address] Dictating Physician: ??SUSAN MANUEL MD Electronically Signed by: ??SUSAN MANUEL MD Dic Date/Time: ??02/07/24904 Sign date/Time: ??02/07/24905 Procedure Note Susan Manuel MD - 03/12/2024 [facility] Diagnostic Imaging Department [address] [place] [address] Patient: IRMA MOORE Mal /Age/Sex: 1960 - 63 - F Unit#: [id number] Location/Status: [facility] CLI [facility] Ordering Physician: CHRISTINA ZHANG MD [facility] Screening Digital - 02/06/24 - 1607 Report Status:Signed EXAM: [facility] Screening Digital EXAM DATE AND TIME: 02/06/2024 4:07 PM HISTORY: Screening. COMPARISON: 01/01/23, 08/24/21, 07/05/19 TECHNIQUE: Bilateral digital breast tomosynthesis was performed in the CCand MLO projections. Computer aided detection with [employer] 3D 3.1was employed. TISSUE DENSITY: a. The [...] Mammogram performed at [facility] [place] [address] Dictating Physician: SUSAN MANUEL MD Electronically Signed by: SUSAN MANUEL MD Dic Date/Time: 02/07/24904 Sign date/Time: 02/07/24 09 Chrisitna Zhang MD IMG BI PROCEDURES Final Res ult * Pap Smear (03/27/2017) HM Pap smear no interpretation abstracted Historical Provider HEALTH MAINTENANCE Final Result from Last 3 Months or Most Recently Relevant to Health Maintenance Insurance [employer] Care Teams Circular Stuffer Relationship Specialty Start Date End Date Christina Zhang MD PCP - General Internal Medicine 04/16/24
[2024-08-04 17:42] LABS: Urine Cytology See Pathology rpt
== END 2024-08-04 07:55 | disposition home or self-care (01) ==
LOC: HO.LNP 07:54
PROVIDERS: PCP Family Medicine; Visit Provider Nurse Practitioner Family
DX: R31.29 Other microscopic hematuria (principal)
CPT/HCPCS: 51798; 81003; 88112

== ENCOUNTER 2024-08-04 07:54 | Outpatient (AMB) | payer OTHER, SELFPAY ==
--- OUTSIDE RECORDS SUMMARY | 2024-08-04 07:56 | XMS_ITS ---
Author Organization [facility] Address [address] [place] [address] Care Team Providers Care Flexo Operator Name Role Phone Vicente VALERA, Sabrina Primary Care Provider Dayanara Moreira [phone] Encounters Encounter Location Date Provider Diagnosis [facility] [address] [place] [address] 11/05/2023 Dayanara Tolentino Plan Of Treatment No Information Progress Notes * Irma MOOREDOB:1960 ( 64 yo F)Acc No.[id number]:11/05/2023 Progress Notes Patient:?Irma MOORE Provider:?Dayanara Tolentino DPM :1960???Age:63 Y???Sex:Female D ate:11/05/2023 Address:[address] [place], [place] [address] Pcp:Sabrina Zhang MD Subjective: * Chief Complaints: [...] Tolentino DPM Date:?2023 Generated for Mark haney/Amish/eTransmitting on:?08/04/2024 07:56 AM EDT
--- OUTSIDE RECORDS SUMMARY | 2024-08-04 07:56 | XMS_ITS ---
Author Organization [facility] Address [address] [place] [address] Care Team Providers Care Cold Strip Feeder Name Role Phone Vicente VALERA, Sabrina Primary Care Provider Dayanara Moreira [phone] REASON FOR VISIT cx COMPLAINTS COORDINATOR 11/04 Encounters Encounter Location Date Provider Diagnosis [facility] [address] [place] [address] 09/19/2023 Dayanara Tolentino Plan Of Treatment No Information Progress Notes * Irma MOOREDOB:1960 ( 63 yo F)Acc No.[id number]:09/19/2023 Patient:?Irma Moore :1960???Age:63 Y???Sex:Female Address:[address] [place] [address] * true * Date:? Generated for Mounikai lyndon/Amish/eTransmitting on:?08/04/2024 07:56 AM EDT
--- OUTSIDE RECORDS SUMMARY | 2024-08-04 07:56 | XMS_ITS | Clinical Summary ---
Author Organization [facility] Address [address] [place] [address] Phone Care Team Providers Care Inclusion Special Educator Name Role Phone Christina Zhang MD Primary Care Provider [phone] Allergies No known active allergies Medications magnesium [...] 02/03/2013 Rectocele 05/13/2011 Dermatophytosis of nail 07/05/2010 Immunizations Name Administration Dates Next Due Influenza trivalent, 0.5mL, preservative free (Fluarix; FluLaval; Fluzone) ages 6mo and older (Afluria) 3 years and older 03/04/2015 Pneumococcal polysaccharide 23 valent (Pneumovax 23) 2yo and older 07/26/2016 Tdap Tetanus diptheria acell ular pertussis (Boostrix; Adacel) 7yo and older 07/05/2010 Surgical History Surgery Date Site/Laterality Comments 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 WISDOM TOOTH EXTRACTION PROCEDURE: HISTORICAL WISDOM TEETH EXTRACTION Medical History Medical History Date Comments Dermatophytosis of nail 07/05/2010 DX:[place] tophytosis of nail Hypercholesterolemia 11/26/2017 DX:Hypercho lesterolemia [...] Maintenance Results * COLONOSCOPY Anesthesia - MAC; [facility] ENDOSCOPY (04/28/2024 7:52 AM EST) Anatomical [...] pathology results. Narrative 04/28/2024 7:52 AM EST [facility] GI Patient Name: Irma Moore Procedure Date: 04/28/2024 7:37 AM Date of : 1960 Age: 63 Gender: Female Note Status: Finalized Attending MD: Kenisha Crews DO, [id number] Procedure Date No Time: 04/28/2024 Procedure: ? [...] physician, the nurse, the ? anesthesiologist, the master fire control technician and the printing technician ? in the pre-procedure area in [...] Procedure Code(s): ? --- Professional --- ? 31632, Colonoscopy, flexible; with removal of ? tumor(s), polyp(s), or other lesion(s) by snare ? technique Diagnosis Code(s): ? --- Professional --- ? Z12.11, Encounter for screening for malignant neoplasm ? of colon ? K64.9, Unspecified hemorrhoids ? D12.2, Benign neoplasm of ascending colon CPT copyright 2020 [employer]. All rights reserved. The codes documented in this report are preliminary and upon medical insurance coder review may be revised to meet current compliance requirements. KENISHA Crews DO 04/28/2024 7:52:14 AM This report has been signed electronically.Kenisha Crews DO Number of Addenda: 0 Note Initiated On: 04/28/2024 7:37 AM Scope Withdrawal Time: 0 hours 6 minutes 31 seconds Scope In: 7:41:16 AM Scope Out: 7:50:56 AM ? Endoscopy Department at [facility] - [address] [place] [address], ? [place] [address] Procedure Note Kenisha Crews DO - 04/28/2024 [facility] GI Patient Name: Irma Moore Procedure Date: 04/28/2024 7:37 AM Date of : 1960 Age: 63 Gender: Female Note Status: Finalized Attending MD: Kenisha Crews DO, [id number] Procedure Date No Time: 04/28/2024 Procedure: Colonoscopy [...] the physician, the nurse, the anesthesiologist, the master fire control technician and thetechnician in the pre-procedure area in [...] retroflexion views. Procedure Code(s): --- Professional --- 00576, Colonoscopy, flexible; with removal of tumor(s), polyp(s), or other lesion(s) by snare technique Diagnosis Code(s): --- Professional --- Z12.11, Encounter for screening for malignantneoplasm of colon K64.9, Unspecified hemorrhoids D12.2, Benign neoplasm of ascending colon CPT copyright 2020 [employer]. All rights reserved. The codes documented in this report are preliminary and upon medical insurance coder reviewmay be revised to meet current compliance requirements. KENISHA Crews DO 04/28/2024 7:52:14 AM This report has been signed electronically.Kenisha Crews DO Number of Addenda: 0 Note Initiated On: 04/28/2024 7:37 AM Scope Withdrawal Time: 0 hours 6 minutes 31 seconds Scope In: 7:41:16 AM Scope Out: 7:50:56 AM Endoscopy Department at [facility] - [address] [place] [phone] IMPRESSION: - Hemorrhoids found on perianal exam. [...] colonoscopy for surveillance based on pathology results. us Kenisha Crews DO GI~PROCEDURE ORDERABLES Final Re sult * ALEX SCREENING DIGITAL (02/07/2024 9:06 AM EDT) Anatomical Region Laterality Modality Mammography 02/06/2024 12:2 2 PM EDT Narrative 02/07/2024 9:06 AM EDT [facility] Diagnostic Imaging Department [address] [place] [address] Patient: ??IRMA MOORE ?/Age/Sex: 1960 - 63 - F Unit#: ??[id number] ? Location/Status: ??SPDIMAM/REG CLI ? Mnemonic/Ordering Site: ??DIGSC/SPMAM Ordering Physician: ??CHRISTINA ZHANG MD Alex Screening Digital - 02/06/24 - 1607 Report Status:Signed EXAM: Alex Screening Digital EXAM DATE AND TIME: 02/06/2024 4:07 PM HISTORY: ??Screening. COMPARISON: ??01/01/23, 08/24/21, 07/05/19 TECHNIQUE: Bilateral digital breast tomosynthesis was performed in the CC and MLO projections. Computer aided detection with [employer] 3D 3.1 was employed. TISSUE DENSITY: a. [...] Mammogram performed at [facility] [address] [place] [address] Dictating Physician: ??SUSAN MANUEL MD Electronically Signed by: ??SUSAN MANUEL MD Dic Date/Time: ??02/07/24904 Sign date/Time: ??02/07/24905 Procedure Note Susan Manuel MD - 03/12/2024 [facility] Diagnostic Imaging Department [address] [place] [address] Patient: IRMA MOORE Mal /Age/Sex: 1960 - 63 - F Unit#: [id number] Location/Status: [facility] CLI [facility] Order[facility] Physician: CHRISTINA ZHANG MD [facility] Screening Digital - 02/06/24 - 1607 Report Status:Signed EXAM: [facility] Screening Digital EXAM DATE AND TIME: 02/06/2024 4:07 PM HISTORY: Screening. COMPARISON: 01/01/23, 08/24/21, 07/05/19 TECHNIQUE: Bilateral digital breast tomosynthesis was performed in the CCand MLO projections. Computer aided detection with Tier 1 Performance 3D 3.1was employed. TISSUE DENSITY: a. The [...] Mammogram performed at [facility] [place] [address] Dictating Physician: SUSAN MANUEL MD Electronically Signed by: SUSAN MANUEL MD Dic Date/Time: 02/07/24904 Sign date/Time: 02/07/24 09 Christina Zhang MD IMG BI PROCEDURES Final Res ult * Pap Smear (03/27/2017) HM Pap smear no interpretation abstracted Historical Provider HEALTH MAINTENANCE Final Result from Last 3 Months or Most Recently Relevant to Health Maintenance [place] [address] Care Teams Inclusion Special Educator Relationship Specialty Start Date End Date Christina Zhang MD PCP - General Internal Medicine 04/16/24
--- OUTSIDE RECORDS SUMMARY | 2024-08-04 07:57 | XMS_ITS | Patient Health Record ---
Author Organization [facility] Address [address] [place] [address] Care Team Providers Care Automobile Painter Name Role Phone Vicente VALERA, Sabrina Primary Care Provider Dayanara Moreira Unavailable [phone] Reason For Referral No Information Encounters Encounter Location Date Provider Diagnosis [facility] [address] [place] [address] 09/19/2023 Dayanara Tolentino Plan Of Treatment No Information Insurance Providers Payer Name Payer Address Payer Phone Subscriber Number Group Number Insured Name Patient Relationship to Insured Coverage Start Date Coverage End Date [employer] [address] [place] [address] [id number] Irma Haji Self - patient is the insured
--- NOTE | 2024-08-04 08:08 | A.OFFVIS_ITS ---
Intake Visit Reasons: urinary incontinence Intake Note: New Patient presents for initial visit for urinary incontinence Urology Medications: none Blood Thinner: none PVR: 0ml's Field Laboratory Operator Required: No Accompanied by: Self / Same As Patient Allergies No Known Allergies Allergy (Verified 08/04/24 08:48) Medication List - Last Reviewed 08/04/24 by Edward Tai atorvastatin mg PO DAILY dulaglutide (Trulicity) mg subcut insulin aspart U-100 subcut insulin glargine U-300 conc (Toujeo SoloStar U-300 Insulin) units subcut levothyroxine mcg PO lisinopril mg PO DAILY metformin ER mg PO mirabegron ER (Myrbetriq) 25 mg PO DAILY 30 days HPI Comments Details: Irma is a very pleasant 64-year-old female patient of Dr. Zhang. She has a past medical history of hyperlipidemia, hypertension, nephrolithiasis, rectocele, hypothyroidism, and hemorrhoids. She presents to the office today as a new patient for mixed urinary incontinence. In discussion with the patient today she reports a longstanding history of mixed urinary incontinence however feels this has become more bothersome as she has been experiencing vaginal itching due to Nancy pads. She reports utilizing 1-2 Nancy pads per day. She does report a previous history of 4 vaginal births. She reports following up with injury/safety hazard assessment recently at which time she was started on Estrace cream and recommendations were made for urology referral as patient had been reporting mixed urinary incontinence. We discussed at length potential causes of mixed urinary in continence as well as further treatment options and risks and benefits of these treatment options. In office urinalysis results reviewed with the patient today. Microscopic hematuria noted. She denies any previous history of workplace chemical exposure and or nicotine dependence. She denies urinary urgency, urinary frequency, nocturia, hematuria, dysuria, foul smelling urine, changes to urinary stream, flank pain, fever, and or chills. We discussed obtaining retroperitoneal ultrasound for further assessment evaluation. She discusses her upcoming vacation on Sunday. She otherwise offers no other issues or concerns at this time. [facility] Medical History Kidney stone Dermatophytosis Rectocele Stress incontinence Internal hemorrhoids Hypothyroidism Hypercholesteremia Type 2 diabetes mellitus Surgical History History of appendectomy Norman teeth removed Status post trigger finger release History of Review of Systems Const All systems reviewed & are unremarkable except as noted in HPI and below Physical Exam Const General: cooperative, healthy appearing, comfortable, no acute distress, well developed, alert and awake Orientation/consciousness: patient oriented x3 HEENT Head: Yes normal to inspection, Yes normocephalic and Yes atraumatic Ears: hearing grossly normal bilaterally Eyes General: appearance normal, both eyes and all related structures Neck Neck: Yes normal visual inspection and Yes trachea midline Chest Chest palpation & inspection: normal inspection of the chest Resp Effort & Inspection: normal respiratory effort and able to speak in complete sentences Cardio Rate: regular rate GI Inspection: Yes normal to inspection General: Yes no CVA tenderness Back/Spine/Pelvis Back: no CVA tenderness Skin General skin exam: no rashes or lesions noted Neuro General: patient oriented x3 Extrem General: Yes normal to inspection Psych Appearance: grossly normal and well kempt Mental Status: mental status grossly normal Speech and movement: Normal speech and movement present and Clear speech present Affect: normal affect Attitude: cooperative Thought process: Normal thought process present Thought content: Normal thought content present Insight: Fair insight present (Psych) Judgement: Fair judgement present (Psych) Office Procedures Post Void Residual Post Residual Void Post Void Residual (PVR): 0 01670-Pgmi Void Residual by ultrasound Results AMB Urinalysis, Automated UA Leukoctes 0 Yolie/uL Last Edit by Edward Tai on 08/04/24 08:29 UA Nitrite Negative Last Edit by Edward Tai on 08/04/24 08:29 UA Urobilinogen 0.2 mg/dL Last Edit by Edward Tai on 08/04/24 08:29 UA Protein 30 mg/dL Last Edit by Edward Tai on 08/04/24 08:29 UA pH 6.0 Last Edit by Edward Tai on 08/04/24 08:29 UA Blood 80 Kleber/uL Last Edit by Edward Shailahien on 08/04/24 08:29 UA Specific [place] 1.030 Last Edit by Edward Shailahien on 08/04/24 08:29 UA Ketone Last Edit by Edward Shailahien on 08/04/24 08:29 UA Bilirubin 1 mg/dL Last Edit by Edward Shailahien on 08/04/24 08:29 UA Glucose 0 mg/dL Last Edit by Edward Shailahien on 08/04/24 08:29 Results Reviewed Results Reviewed: Laboratory Last Values Urine pH (Auto) 6.0 08/04/24 08:25 Specific [place] (Auto) 1.030 08/04/24 08:25 Urine Protein (Auto) 30 mg/dL 08/04/24 08:25 Glucose (UA)(Auto) 0 mg/dL 08/04/24 08:25 Urine Blood (Auto) 80 Kleber/uL 08/04/24 08:25 Urine Nitrite (Auto) Negative 08/04/24 08:25 Urine Bilirubin (Auto) 1 mg/dL 08/04/24 08:25 Urine Urobilinogen (Auto) 0.2 mg/dL 08/04/24 08:25 Leukocyte Esterase (Auto) 0 Yolie/uL 08/04/24 08:25 Assessment & Plan Assessment & Plan (1) Microscopic hematuria: Code(s): R31.29 - Other microscopic hematuria Category: Medical (2) Urinary incontinence, mixed: Code(s): N39.46 - Mixed incontinence Category: Medical Plan In office urinalysis results reviewed with the patient today; as noted above; will send for urine cytology. Continue Estrace cream. We discussed at length potential causes and treatment options of mixed urinary incontinence and risks and benefits of these treatment options. Will obtain retroperitoneal ultrasound for further assessment evaluation. We discussed importance of management and diabetes for improvement in urological condition as well as overall health and well-being. We discussed pelvic floor therapy/exercises. Start Myrbetriq as discussed and prescribed. Will schedule for in office urodynamics for further assessment evaluation; we discussed holding Myrbetriq prior to procedure. Follow-up in 1-3 months with imaging and PVR; or sooner with any issues, concerns, and or questions. Orders: Orders AMB Post Void Residual by ultrasound Today N39.41 - Urge incontinence US retroperitoneal comp Today N39.46 - Mixed incontinence, R31.29 - Other mi croscopic hematuria AMB Urinalysis Automated Today Z13.9 - Encounter for screening, unspecified Medications: New mirabegron ER (Myrbetriq) 25 mg PO DAILY 30 tabs 3RF 30 days N30.10 - Interstitial cystitis (chronic) without hematuria, N32.81 - Overactive bladder, R35.1 - Nocturia, R39.15 - Urgency of urination Patient Instructions: The patient had an opportunity to ask questions regarding the treatment plan. All questions were answered. Physical exam, labs, and imaging were discussed and reviewed in detail. As well as risks, benefits, and discussion of treatment choices. No major barriers to understanding were identified. The patient expressed understanding and agreement with the above treatment plan. The patient was made aware they should contact our office by phone for worsening of their current condition, the appearance of new symptoms, or with any questions or concerns. Compliance is encouraged with any medications and follow up testing that is ordered. It is a privilege to be allowed the opportunity to participate in? your urological care.? Again, if you have any questions or concerns If you have any questions or concerns please do not hesitate to contact me. The office is [phone]. This note is constructed using voice recognition software. While every effort has been made to ensure accuracy warp hauler errors may have been included. Yours sincerely, NERY Voss Coding Level of Care Code New Pt Level 4 (89982) Diagnoses Microscopic hematuria R31.29 Urinary incontinence, mixed N39.46 CPT Codes Post Residual Void - PVR CPT Code: 25356-[place] Void Residual by ultrasound ([id number])
== END 2024-08-04 09:02 | disposition home or self-care (01) ==
PROVIDERS: PCP Family Medicine; Visit Provider Nurse Practitioner Family
DX: R31.29 Other microscopic hematuria (principal); N39.46 Mixed incontinence; Z13.9 Encounter for screening, unspecified
CPT/HCPCS: 99204

== ENCOUNTER 2024-09-19 15:38 | Outpatient (REF) | payer OTHER, SELFPAY ==
--- NOTE | ~2024-09-19 | US_ITS ---
CLINICAL HISTORY: N39.46 - Mixed incontinence US retroperitoneum Comparison: None Findings: Right kidney normal size and echotexture, 10.7 cm length. No hydronephrosis. Normal color flow. A 1.7 cm well-circumscribed focal area of fatty tissue in the middle zone of the right kidney . Left kidney normal size and echotexture, 10.9 cm in length. No hydronephrosis. Normal color flow. A 6.6 mm echogenicity in the lower pole of the left kidney may represent low-density calculus not attenuating the sound beam versus echogenic fat. Urinary bladder is unremarkable. Prevoid volume 282 mL. Postvoid volume 15mL. Ureteral jets are visualized bilaterally Impression: Right renal cortical well-circumscribed fat in the middle zone may represent angiomyolipoma. Consider MRI or CT with contrast. Possible left kidney lower pole calcification not dense enough to attenuate the sound beam. This document has been electronically signed by: Edmund Crandall MD on 09/23/2024 16:53:31
--- OUTSIDE RECORDS SUMMARY | 2024-09-19 16:04 | XMS_ITS ---
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 Generated for Mounikai lyndon/Amish/eTransmitting on:?09/19/2024 04:04 PM EDT
--- OUTSIDE RECORDS SUMMARY | 2024-09-19 16:04 | XMS_ITS ---
Author Organization [facility] Address [address] [place] [address] Care Team Providers Care Incoming Freight Clerk Name Role Phone Vicente VALERA, Sabrina Primary Care Provider Dayanara Moreira [phone] Encounters Encounter Location Date Provider Diagnosis [facility] [address] [place] [address] 11/05/2023 Dayanara Tolentino Plan Of Treatment No Information Progress Notes * Irma MOOREDOB:1960 ( 64 yo F)Acc No.[id number]:11/05/2023 Progress Notes Patient:?Irma MOORE Provider:?Dayanara Tolentino DPM :1960???Age:63 Y???Sex:Female D ate:11/05/2023 Address:[address] [place], [place] [id number] Pcp:Sabrina Zhang MD Subjective: * Chief Complaints: [...] Tolentino DPM Date:?2023 Generated for Mark haney/Amish/eTransmitting on:?09/19/2024 04:04 PM EDT
--- OUTSIDE RECORDS SUMMARY | 2024-09-19 16:04 | XMS_ITS | Clinical Summary ---
Author Organization [facility] Address [address] [place] [address] Phone Care Team Providers Care Injection Molding Machine Operator Name Role Phone Christina Zhang MD Primary Care Provider [phone] Allergies No known active allergies Medications magnesium [...] 11/26/2017 Hypothyroidism 11/26/2017 Type 2 diabetes mellitus wit h renal manifestations ([facility] V24, [facility] V28) 11/26/2017 Internal hemorrhoids 06/24/2013 Stress incontinence in [...] Surgery Date Site/Laterality Comments SECTION PROCEDURE: 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 WISDOM TOOTH EXTRACTION PROCEDURE: HISTORICAL WISDOM TEETH EXTRACTION Medical History Medical History Date Comments Dermatophytosis of nail 07/05/2010 DX:[place] tophytosis of nail Hypercholesterolemia 11/26/2017 DX:Hypercho lesterolemia Hypothyroidism 11/26/2017 DX:Hypothyroidis m Internal hemorrhoids 06/24/2013 DX:Internal hemorrhoids Rectocele 05/13/2011 DX:Rectocele Stress incontinence in female 02/03/2013 DX :Stress incontinence in female Proteinuria 04/24/2018 DX:Proteinuria Type 2 diabetes mellitus wit h renal manifestations (CMS/HCC V24, CMS/HCC V28) 11/26/2017 DX:Type 2 diabetes mellitus with renal manifestations ([facility]) Family History Medical History Relation Name Comments [...] Screening: Pap Smear 03/27/2020 03/27/2017 RSV Immunization Adult Patients (1 - Risk 60-74 years 1-dose series) 2020 Cholesterol Screening (Lipid Panel) 04/29/2022 Depression Screening 04/29/2022 HIV Screening 04/29/2022 Hepatitis C Screening 04/29/2022 Social Influencers of Health Screening 04/29/2022 Diabetes: Annual Urine Albumin-Creatinine Ratio (uACR) 05/13/2022 Diabetes: Blood Sugar Control Test (HGBA1C) 05/13/2022 COVID-19 Vaccine ( season) 2024 Hypertension/CHF/CAD Annual BMP Blood Test 04/28/2024 Influenza Vaccine (Season Ended) 2025 05/24/2023, 05/16/2022, 02/09/2021, Additional history exists Breast Cancer Screening 02/06/2026 02/07/20 24, 01/01/2023, [...] age to complete this topic Meningococcal B Vaccine Aged Out No l onger eligible based on patient's age to complete [...] Maintenance Results * COLONOSCOPY Anesthesia - MAC; [facility] ENDOSCOPY (04/28/2024 7:52 AM EST) Anatomical [...] pathology results. Narrative 04/28/2024 7:52 AM EST [facility] GI Patient Name: Irma Moore Procedure Date: 04/28/2024 7:37 AM Date of : 1960 Age: 63 Gender: Female Note Status: Finalized Attending MD: Kenisha Crews DO, [id number] Procedure Date No Time: 04/28/2024 Procedure: ? [...] physician, the nurse, the ? anesthesiologist, the machine ii cutter and the composite technician ? in the pre-procedure area in [...] Procedure Code(s): ? --- Professional --- ? 04280, Colonoscopy, flexible; with removal of ? tumor(s), polyp(s), or other lesion(s) by snare ? technique Diagnosis Code(s): ? --- Professional --- ? Z12.11, Encounter for screening for malignant neoplasm ? of colon ? K64.9, Unspecified hemorrhoids ? D12.2, Benign neoplasm of ascending colon CPT copyright 202 [employer]. All rights reserved. The codes documented in this report are preliminary and upon retail support specialist review may be revised to meet current compliance requirements. KENISHA Crews DO 04/28/2024 7:52:14 AM This report has been signed electronically.Kenisha Crews DO Number of Addenda: 0 Note Initiated On: 04/28/2024 7:37 AM Scope Withdrawal Time: 0 hours 6 minutes 31 seconds Scope In: 7:41:16 AM Scope Out: 7:50:56 AM ? Endoscopy Department at [facility] - [address] [place] [address], ? [place] [address] Procedure Note Kenisha Crews DO - 04/28/2024 [facility] GI Patient Name: Irma Moore Procedure Date: 04/28/2024 7:37 AM Date of : 1960 Age: 63 Gender: Female Note Status: Finalized Attending MD: Kenisha Crews DO, [id number] Procedure Date No Time: 04/28/2024 Procedure: Colonoscopy [...] the physician, the nurse, the anesthesiologist, the machine ii cutter and thetechnician in the pre-procedure area in [...] retroflexion views. Procedure Code(s): --- Professional --- 86493, Colonoscopy, flexible; with removal of tumor(s), polyp(s), or other lesion(s) by snare technique Diagnosis Code(s): --- Professional --- Z12.11, Encounter for screening for malignantneoplasm of colon K64.9, Unspecified hemorrhoids D12.2, Benign neoplasm of ascending colon CPT copyright 2020 [employer]. All rights reserved. The codes documented in this report are preliminary and upon retail support specialist reviewmay be revised to meet current compliance requirements. KENISHA Crews DO 04/28/2024 7:52:14 AM This report has been signed electronically.Kenisha Crews DO Number of Addenda: 0 Note Initiated On: 04/28/2024 7:37 AM Scope Withdrawal Time: 0 hours 6 minutes 31 seconds Scope In: 7:41:16 AM Scope Out: 7:50:56 AM Endoscopy Department at [facility] - [address] [place] [phone] IMPRESSION: - Hemorrhoids found on perianal exam. [...] PM EDT Narrative 02/07/2024 9:[address] [facility] Diagnostic Imaging Department [address] [place] [id number] Patient: ??IRMA MOORE ?/Age/Sex: 1960 - 63 - F Unit#: ??[id number] ? Location/Status: ??SPDIMAM/REG CLI ? Mnemonic/Ordering Site: ??DIGSC/SPMAM Ordering Physician: ??CHRISTINA ZHANG MD Alex Screening Digital - 02/06/24 - 1607 Report Status:Signed EXAM: Alex Screening Digital EXAM DATE AND TIME: 02/06/2024 4:07 PM HISTORY: ??Screening. COMPARISON: ??01/01/23, 08/24/21, 07/05/19 TECHNIQUE: Bilateral digital breast tomosynthesis was performed in the CC and MLO projections. Computer aided detection with [employer] 3D 3.1 was employed. TISSUE DENSITY: a. [...] Mammogram performed at [facility] [address] [place] [address] Dictating Physician: ??SUSAN MANUEL MD Electronically Signed by: ??SUSAN MANUEL MD Dic Date/Time: ??02/07/24904 Sign date/Time: ??02/07/24905 Procedure Note Susan Manuel MD - 03/12/2024 [facility] Diagnostic Imaging Department [address] [place] [address] Patient: IRMA MOORE Mal /Age/Sex: 1960 - 63 - F Unit#: [id number] Location/Status: [facility] CLI Mnemonic/Ordering Site: [facility] Ordering Physician: CHRISTINA ZHANG MD [facility] Screening Digital - 02/06/24 - 1607 Report Status:Signed EXAM: [facility] Screening Digital EXAM DATE AND TIME: 02/06/2024 4:07 PM HISTORY: Screening. COMPARISON: 01/01/23, 08/24/21, 07/05/19 TECHNIQUE: Bilateral digital breast tomosynthesis was performed in the CCand MLO projections. Computer aided detection with iCAD [employer] AI 3D 3.1was employed. TISSUE DENSITY: a. [...] Mammogram performed at [facility] [place] [address] Dictating Physician: SUSAN MANUEL MD Electronically Signed by: SUSAN MANUEL MD Dic Date/Time: 02/07/24904 Sign date/Time: 02/07/24905 Christina Zhang MD IMG BI PROCEDURES Final Res ult * Pap Smear (03/27/2017) HM Pap smear no interpretation abstracted Historical Provider HEALTH MAINTENANCE Final Result from Last 3 Months or Most Recently Relevant to Health Maintenance Insurance [employer] Care Teams Injection Molding Machine Operator Relationship Specialty Start Date End Date Christina Zhang MD PCP - General Internal Medicine 04/16/24
--- OUTSIDE RECORDS SUMMARY | 2024-09-19 16:05 | XMS_ITS | Patient Health Record ---
Author Organization [facility] Address [address] [place] [address] Care Team Providers Care Tree Trimmer Name Role Phone Vicente VALERA, Sabrina Primary Care Provider Dayanara Moreira Unavailable [phone] Reason For Referral No Information Plan Of Treatment No Information Insurance Providers Payer Name Payer Address Payer Phone Subscriber Number Group Number Insured Name Patient Relationship to Insured Coverage Start Date Coverage End Date [employer] [address] [place] [address] [id number] Irma Haji Self - patient is the insured
== END 2024-09-19 15:39 | disposition home or self-care (01) ==
LOC: HO.US 15:38
PROVIDERS: PCP Family Medicine; Visit Provider Nurse Practitioner Family
DX: N39.46 Mixed incontinence (principal); R31.29 Other microscopic hematuria
CPT/HCPCS: 76770

== ENCOUNTER → 2024-09-19 15:40 | Outpatient (BNV) | payer OTHER, SELFPAY | PROVIDERS: PCP Family Medicine; Visit Provider Radiology Diagnostic Radiology | DX: N39.46 Mixed incontinence (principal) | CPT/HCPCS: 76770 ==

== ENCOUNTER 2024-11-14 10:28 | Outpatient (AMB) | payer OTHER, SELFPAY ==
--- OUTSIDE RECORDS SUMMARY | 2024-11-14 10:53 | XMS_ITS | Clinical Summary ---
Author Organization [facility] Address [address] [place] [address] Phone Care Team Providers Care Commander Internal Affairs Name Role Phone Christina Zhang MD Primary Care Provider [phone] Allergies No known active allergies Medications magnesium [...] 2 diabetes mellitus wit h renal manifestations ([facility] V24, [facility] V28) 11/26/2017 Internal hemorrhoids 06/24/2013 Stress incontinence [...] Surgery Date Site/Laterality Comments SECTION PROCEDURE: HISTORICAL REGISTERED NURSE CARDIOVASCULAR ICU SURGERY PROCEDURE: [place] UNLISTED PROCEDURE HANDS/FINGERS; COMMENT: TRIGGER FINGER RELEASE. WISDOM TOOTH EXTRACTION PROCEDURE: HISTORICAL WISDOM TEETH EXTRACTION Medical History Medical History Date Comments Dermatophytosis of nail 07/05/2010 DX:[place] tophytosis of nail Hypercholesterolemia 11/26/2017 DX:Hypercho lesterolemia Hypothyroidism 11/26/2017 DX:Hypothyroidis m Internal hemorrhoids 06/24/2013 DX:Internal hemorrhoids Rectocele 05/13/2011 DX:Rectocele Stress incontinence in female 02/03/2013 DX :Stress incontinence in female Proteinuria 04/24/2018 DX:Proteinuria Type 2 diabetes mellitus wit h renal manifestations (CMS/HCC V24, CMS/HCC V28) 11/26/2017 DX:Type 2 diabetes mellitus with renal manifestations ([facility]) Family History Medical History Relation Name Comments [...] 91 04/28/2024 8:13 AM EST Temperature 36.4 C (97.6 F) 04/28/2024 7:24 AM EST Respiratory Rate 17 04/28/2024 8:13 AM EST [...] for screening for malignant neoplasm of colon [facility] SCREENING DIGITAL Routine 02/07/2024 9:06 AM EDT Encounter for screening mammogram for malignant neoplasm of breast HM PAP SMEAR Routine 03/27/2017 from Last 3 Months or Most Recently Relevant to Health Maintenance Results * COLONOSCOPY Anesthesia - MAC; [facility] ENDOSCOPY (04/28/2024 7:52 AM EST) Anatomical Region Laterality Modality Endoscopy 04/28/2024 7:37 AM EST Impressions 04/28/2024 7:52 AM EST - Hemorrhoids found on perianal exam. - Three 7 to 10 mm polyps in the ascending colon, removed with a cold snare. Resected and retrieved. - The entire examined colon is normal on direct and retroflexion views. Recommendation: - - Discharge patient to home. - High fiber diet. - Continue present medications. - Await pathology results. - Repeat colonoscopy for surveillance based on pathology results. Narrative 04/28/2024 7:52 AM EST [facility] GI Patient Name: Irma Moore Procedure Date: 04/28/2024 7:37 AM Date of : 1960 Age: 63 Gender: Female Note Status: Finalized Attending MD: Kenisha Crews DO, [id number] Procedure Date No Time: 04/28/2024 Procedure: Colonoscopy Indications: Screening for colorectal malignant neoplasm Providers: Kenisha Crews DO Referring MD: Kenisha Crews DO Medicines: Monitored Anesthesia Care Complications: No immediate complications. Estimated blood loss: Minimal. Estimated Blood Loss: Estimated blood loss was minimal. Procedure: Pre-Anesthesia Assessment: - - Prior to the procedure, a History and Physical was performed, and patient medications and allergies were reviewed. The patient is competent. The risks and benefits of the procedure and the sedation options and risks were discussed with the patient. All questions were answered and informed consent was obtained. Patient identification and proposed procedure were verified by the physician, the nurse, the anesthesiologist, the shoe puller and the structures technician in the pre-procedure area in the endoscopy suite. Mental Status Examination: alert and oriented. Airway Examination: normal oropharyngeal airway and neck mobility. Respiratory Examination: clear to auscultation. CV Examination: normal. Prophylactic Antibiotics: The patient does not require prophylactic antibiotics. Prior Anticoagulants: The patient has taken no anticoagulant or antiplatelet agents. ASA Grade Assessment: II - A patient with severe systemic disease. After reviewing the risks and benefits, the patient was deemed in satisfactory condition to undergo the procedure. The anesthesia plan was to use monitored anesthesia care (MAC). Immediately prior to administration of medications, the patient was re-assessed for adequacy to receive sedatives. The heart rate, respiratory rate, oxygen saturations, blood pressure, adequacy of pulmonary ventilation, and response to care were monitored throughout the procedure. The physical status of the patient was re-assessed after the procedure. After I obtained informed consent, the scope was passed under direct vision. Throughout the procedure, the patient's blood pressure, pulse, and oxygen [...] removed with a cold snare. Resection and retrieval were complete. Estimated blood loss was minimal. The entire examined colon appeared normal on direct and retroflexion views. Procedure Code(s): --- Professional --- 40812, Colonoscopy, flexible; with removal of tumor(s), polyp(s), or other lesion(s) by snare technique Diagnosis Code(s): --- Professional --- Z12.11, Encounter for screening for malignant neoplasm of colon K64.9, Unspecified hemorrhoids D12.2, Benign neoplasm of ascending colon CPT copyright 2020 [employer]. All rights reserved. The codes documented in this report are preliminary and upon business liaison officer review may be revised to meet current compliance requirements. KENISHA Crews DO 04/28/2024 7:52:14 AM This report has been signed electronically.Kenisha Crews DO Number of Addenda: 0 Note Initiated On: 04/28/2024 7:37 AM Scope Withdrawal Time: 0 hours 6 minutes 31 seconds Scope In: 7:41:16 AM Scope Out: 7:50:56 AM Endoscopy Department at [facility] - [address] [place] [phone] Procedure Note Kenisha Crews DO - 04/28/2024 [facility] GI Patient Name: Irma Moore Procedure Date: 04/28/2024 7:37 AM Date of : 1960 Age: 63 Gender: Female Note Status: Finalized Attending MD: Kenisha Crews DO, [id number] Procedure Date No Time: 04/28/2024 Procedure: Colonoscopy [...] the physician, the nurse, the anesthesiologist, the shoe puller and thetechnician in the pre-procedure area in [...] retroflexion views. Procedure Code(s): --- Professional --- 48154, Colonoscopy, flexible; with removal of tumor(s), polyp(s), or other lesion(s) by snare technique Diagnosis Code(s): --- Professional --- Z12.11, Encounter for screening for malignantneoplasm of colon K64.9, Unspecified hemorrhoids D12.2, Benign neoplasm of ascending colon CPT copyright 2020 [employer]. All rights reserved. The codes documented in this report are preliminary and upon business liaison officer reviewmay be revised to meet current compliance requirements. KENISHA Crews DO 04/28/2024 7:52:14 AM This report has been signed electronically.Kenisha Crews DO Number of Addenda: 0 Note Initiated On: 04/28/2024 7:37 AM Scope Withdrawal Time: 0 hours 6 minutes 31 seconds Scope In: 7:41:16 AM Scope Out: 7:50:56 AM Endoscopy Department at [facility] - [address] [place] [phone] IMPRESSION: - Hemorrhoids found on perianal exam. [...] DO GI~PROCEDURE ORDERABLES Final Re sult * [facility] SCREENING DIGITAL (02/07/2024 9:06 AM EDT) Anatomical Region Laterality Modality Mammography 02/06/2024 12:2 2 PM EDT Narrative 02/07/2024 9:06 AM EDT [facility] Diagnostic Imaging Department [address] [place] [address] Patient: IRMA MOORE Mal /Age/Sex: 1960 - 63 - F Unit#: [id number] Location/Status: [facility] CLI [facility] Ordering Physician: CHRISTINA ZHANG MD [facility] Screening Digital - 02/06/24 - 1607 Report Status:Signed EXAM: [facility] Screening Digital EXAM DATE AND TIME: 02/06/2024 4:07 PM HISTORY: Screening. COMPARISON: 01/01/23, 08/24/21, 07/05/19 TECHNIQUE: Bilateral digital breast tomosynthesis was performed in the CC and MLO projections. Computer aided detection with [employer] 3D 3.1 was employed. TISSUE DENSITY: a. The breasts are almost entirely fatty. FINDINGS: No suspicious masses, grouped microcalcifications, or areas of architectural distortion are seen. Skin calcifications are present. The vascularity is unremarkable. IMPRESSION: Stable mammographic appearance of the breasts. No evidence of malignancy is seen. A negative mammogram in the presence of a clinically suspicious palpable abnormality does not preclude the possibility of malignancy or alter the indications for biopsy. BI-RADS: Category 2: Benign RECOMMENDATION(S): 1: Routine screening mammogram BILATERAL in 1 year. Mammogram performed at [facility] [address] [place] [address] Dictating Physician: SUSAN MANUEL MD Electronically Signed by: SUSAN MANUEL MD Dic Date/Time: 02/07/24904 Sign date/Time: 02/07/24905 Procedure Note Susan Manuel MD - 03/12/2024 [facility] Diagnostic Imaging Department [address] [place] [address] Patient: IRMA MOORE Mal /Age/Sex: 1960 - 63 - F Unit#: [id number] [facility] Mn[facility]onic/Ordering Site: [facility] Ordering Physician: CHRISTINA ZHANG MD [facility] Screening Digital - 02/06/24 - 1607 Report Status:Signed EXAM: [facility] Screening Digital EXAM DATE AND TIME: 02/06/2024 4:07 PM HISTORY: Screening. COMPARISON: 01/01/23, 08/24/21, 07/05/19 TECHNIQUE: Bilateral digital breast tomosynthesis was performed in the CCand MLO projections. Computer aided detection with [employer] AI 3D 3.1was employed. TISSUE DENSITY: a. [...] Mammogram performed at [facility] [place] [address] Dictating Physician: SUSAN MANUEL MD Electronically Signed by: SUSAN MANUEL MD Dic Date/Time: 02/07/24904 Sign date/Time: 02/07/24905 Christina Zhang MD IMG BI PROCEDURES Final Res ult * Pap Smear (03/27/2017) HM Pap smear no interpretation abstracted us Historical Provider HEALTH MAINTENANCE Final Result from Last 3 Months or Most Recently Relevant to Health Maintenance Insurance [employer] Care Teams Commander Internal Affairs Relationship Specialty Start Date End Date Christina Zhang MD PCP - General Internal Medicine 04/16/24
--- NOTE | 2024-11-14 11:22 | A.OFFVIS_ITS ---
Intake Visit Reasons: UDS Allergies No Known Allergies Allergy (Verified 08/04/24 08:48) HPI Comments Details: History of Present Illness - The patient is a 64-year-old female presenting with bladder spasms and urinary incontinence. - Bladder spasms: Medication prescribed in July has been somewhat effective. - Pruritus: Significant itching in the perineal area, leading to self-inflicted cuts. - Urinary incontinence: Leakage associated with coughing is common. - Intervention: Discussed procedure to inject gel for support and reduce incontinence. - Kidney lesion: Tiny fatty lesion in the kidney, MRI planned in six months for reevaluation. Urinary Symptoms Review - Urinary incontinence occurs with coughing. - The patient wears a pad to manage incontinence but experiences itching in the perineal area. - The patient reports bladder spasms, which have been somewhat controlled with medication. Results - Ultrasound: Normal kidneys and bladder; tiny fatty lesion in the kidney. Discussion Notes We discussed the option of a minimally invasive procedure to inject gel at the urethral opening to provide support and reduce urinary incontinence. The procedure is performed as an outpatient with local anesthesia and sedation, and it typically takes about 15 minutes. We expect about a 65% improvement in leakage related to coughing. The gel can last for at least five years, and if necessary, it can be reapplied. We also discussed the potential side effect of urinary retention post-procedure, which may require the use of a pediatric catheter temporarily. The patient was advised to stop Myrbetriq five days before the procedure to ensure optimal bladder function post-procedure. An MRI is planned in six months to reevaluate the tiny fatty lesion in the kidney. Follow- up will be scheduled to assess the effectiveness of the intervention and decide on further management, including the potential reintroduction of medication. Plan - Plan to perform a minimally invasive procedure to inject gel at the urethral opening to reduce urinary incontinence. - The patient will stop Myrbetriq five days before the procedure to ensure optimal bladder function post-procedure. - An MRI is scheduled in six months to reevaluate the tiny fatty lesion in the kidney. - Follow-up will be scheduled to assess the effectiveness of the intervention and decide on further management, including the potential reintroduction of medication. Patient Instructions - Stop taking Myrbetriq five days before the scheduled procedure. - Follow up with the clinic to assess the effectiveness of the procedure and discuss further management options. - An MRI will be scheduled in six months to check the kidney lesion. Patient was informed and verbally consented to the use of an ambient scribe for clinic note documentation during this visit. Irma is a very pleasant 64-year-old female patient of Dr. Zhang. She has a past medical history of hyperlipidemia, hypertension, nephrolithiasis, rectocele, hypothyroidism, and hemorrhoids. She presents to the office today as a new patient for mixed urinary incontinence. In discussion with the patient today she reports a longstanding history of mixed urinary incontinence however feels this has become more bothersome as she has been experiencing vaginal itching due to Nancy pads. She reports utilizing 1-2 Nancy pads per day. She does report a previous history of 4 vaginal births. She reports following up with ip/mosaic technician recently at which time she was started on Estrace cream and recommendations were made for urology referral as patient had been reporting mixed urinary incontinence. We discussed at length potential causes of mixed urinary incontinence as well as further treatment options and risks and benefits of these treatment options. In office urinalysis results reviewed with the patient today. Microscopic hematuria noted. She denies any previous history of workplace chemical exposure and or nicotine dependence. She denies urinary urgency, urinary frequency, nocturia, hematuria, dysuria, foul smelling urine, changes to urinary stream, flank pain, fever, and or chills. We discussed obtaining retroperitoneal ultrasound for further assessment evaluation. She discusses her upcoming vacation on Sunday. She otherwise offers no other issues or concerns at this time. [facility] Medical History Kidney stone Dermatophytosis Rectocele Stress incontinence Internal hemorrhoids Hypothyroidism Hypercholesteremia Type 2 diabetes mellitus Surgical History History of appendectomy [place] teeth removed Status post trigger finger release History of Review of Systems Const All systems reviewed & are unremarkable except as noted in HPI and below Reports no additional complaints Eyes Reports no additional complaints ENT Reports no additional complaints Card Reports no additional complaints Resp Reports no additional complaints GI Reports no additional complaints Reports as per HPI Musc Reports no additional complaints Skin/Breast Reports system reviewed and no additional complaints, except as documented Neuro Reports no additional complaints Psych Reports no additional complaints Endo Reports no additional complaints Germán/Lymph Reports no additional complaints Aller/Immun Reports no additional complaints Office Procedures Urodynamic Studies Consent Discussed risk and benefit or proposed procedure with the patient. Information consent for procedure given to the patient. Discussed technical aspects, risks, benefits and alternatives in full. Addressed all of the patient's questions and concerns regarding the procedure. The patient demonstrated knowledge and understanding. They wish to proceed with this procedure. Preparation The patient was prepped in the usual manner. A plastics tooling engineer was present and in the room. Genitalia was prepped with betadine solution in a sterile manner. Procedure Complex Uroflow Unable to perform due to no urge to void. Straight cath amount: 30ml Cystometrogram ? Vaginal/rectal catheter type: Vaginal First sensation at (mL): 18 mL First desire at (mL): 82mL Strong desire to void occurred at (mL): 244 mL Strong desire detrusor pressure (cm H2O): 0.5 Maximum Capacity (mL): 258 mL Voiding Summary Voided with max detrusor pressure of (cm H2O): 91 Maximum flow rate (mL/second): 10 mL/s Voided volume (mL):165ml Calculated PVR: 93 mL (Patient voided an additional large amount once catheters removed) Stress Testing Stress Test at 190 mL: Absent leak with Valsalva, Absent leak with cough Stress Test at 257 mL: Absent leak with Valsalva, Absent leak with cough DO Dry: Absent DO Wet: Absent Prep: The patient was prepped in the usual manner. A plastics tooling engineer was present and in the room. Genitalia was prepped with betadine solution in a sterile manner. 79736-Duwcabuylsveuk w/ SPEEDER FRAME TENDER 49470-Xcfq/Urinary Muscle Study 44212-Zwmzu-Qqyctnzhe Pressure Test Procedure code (CPT) selection complete Office Meds nitrofurantoin monohydrate/macrocrystals 100 mg capsule Performing Provider: Eleanor Zabala MD [facility] Administered by: Mera Haas RN on 11/14/24 11:23 Dose Route Admin Location Dispensed Lot Number Expiration Date NDC Grocery Clerk Selling 100 mg PO 1 cap Results AMB Urinalysis, Automated UA Leukoctes 0 Yolie/uL Last Edit by Mera Haas RN on 11/14/24 11:30 UA Nitrite Negative Last Edit by Mera Haas RN on 11/14/24 11:30 UA Urobilinogen 17 mg/dL Last Edit by Mera Haas RN on 11/14/24 11:3 0 UA Protein 0.3 mg/dL Last Edit by Mera Haas RN on 11/14/24 11:30 UA pH 5.5 Last Edit by Mera Haas RN on 11/14/24 11:30 UA Blood 0 Kleber/uL Last Edit by Mera Haas RN on 11/14/24 11:30 UA Specific [place] 1.0 Last Edit by Mera Haas RN on 11/14/24 11:3 0 UA Ketone Negative Last Edit by Mera Haas RN on 11/14/24 11:30 UA Bilirubin 0 mg/dL Last Edit by Mera Haas RN on 11/14/24 11:30 UA Glucose 0 mg/dL Last Edit by Mera Haas RN on 11/14/24 11:30 Assessment & Plan Assessment & Plan (1) Renal mass of unknown nature: Code(s): N28.89 - Other specified disorders of kidney and ureter Category: Medical Orders: Orders AMB Urodynamics Studies Today N39.46 - Mixed incontinence AMB Urinalysis Automated Today Z13.9 - Encounter for screening, unspecified MR abdomen wo/w con 5 Months N28.89 - Other specified disorders of kidney and ureter Coding Diagnoses Renal mass of unknown nature N28.89 CPT Codes Urodynamic Studies - CPT: 03243-Vtsvghkptiuvup w/ SPEEDER FRAME TENDER ([id number]) Urodynamic Studies - CPT: 58709-Lqpm/Urinary Muscle Study ([id number]) Urodynamic Studies - CPT: 93509-Woios-Qmqmehgwu Pressure Test ([id number])
== END 2024-11-14 11:41 | disposition home or self-care (01) ==
LOC: HO.HUSH 10:29
PROVIDERS: PCP Family Medicine; Visit Provider Urology
DX: N39.46 Mixed incontinence (principal); Z13.9 Encounter for screening, unspecified
CPT/HCPCS: 51728; 51784; 51797

== ENCOUNTER → 2024-11-14 10:28 | Outpatient (BNVA) | payer OTHER, SELFPAY | PROVIDERS: PCP Family Medicine; Visit Provider Urology | DX: N39.46 Mixed incontinence (principal); N28.89 Other specified disorders of kidney and ureter | CPT/HCPCS: 51728; 51784; 51797; 81003 ==

== ENCOUNTER 2024-11-22 08:57 | Outpatient (REF) | payer OTHER, SELFPAY ==
[2024-11-22 09:26] LABS: Estimated Average Glucose 148 mg/dL; Hemoglobin A1c % 6.8 % (<6.0)
[2024-11-22 12:03] LABS: Creatinine Urine 127.72 mg/dL; Microalbum/Creatinine Ratio Ur 221.5 ug/mg cr (<30)
== END 2024-11-22 08:58 | disposition home or self-care (01) ==
LOC: HO.LAB 08:57
PROVIDERS: PCP Family Medicine; Visit Provider Family Medicine
DX: E11.21 Type 2 diabetes mellitus with diabetic nephropathy (principal)
CPT/HCPCS: 36415; 82043; 82570; 83036

== ENCOUNTER 2025-01-20 06:58 | Day surgery (SDC) | payer OTHER, SELFPAY ==
--- OUTSIDE RECORDS SUMMARY | 2023-11-05 10:00 | XMS_ITS ---
Author Organization [facility] Address [address] [place] [address] Care Team Providers Care Swimming Pool Salesperson Name Role Phone Vicente VALERA, Sabrina Primary Care Provider Dayanara Moreira [phone] Encounters Encounter Location Date Provider Diagnosis [facility] [address] [place] [address] 11/05/2023 Dyaanara Tolentino Plan Of Treatment No Information Progress Notes * Irma MOOREDOB:1960 ( 64 yo F)Acc No.[id number]:11/05/2023 Progress Notes Patient: Irma JURADO Provider: Nba Tolentino DPM :1960 A ge:63 Y S ex:Female Date:11/05/2023 Address:[address] [place], [place] [id number] Pcp:Sabrina Zhang MD Subjective: * Chief Complaints: * * Medical History: Objective: * Vitals: Assessment: Plan: * Treatment: * Images: * The named appointment provid er may or may not be the originator of this progress note, and it is not deemed complete until electronically signed by the appointment provider. Sign off status: Pending * Provider: Nba Tolentino DPM Date: 11/05/2023 Generated for Mark haney/Amish/eTsheliasmitting on: 11/25/2024 12:37 PM EDT
--- OUTSIDE RECORDS SUMMARY | 2024-11-25 12:37 | XMS_ITS | Clinical Summary ---
Author Organization [facility] Address [address] [place] [address] Phone Care Team Providers Care Fiber Locking Supervisor Name Role Phone Christina Zhang MD Primary Care Provider [phone] Allergies No known active allergies Medications magnesium [...] 2 diabetes mellitus wit h renal manifestations ([facility] V24, [facility] V28) 11/26/2017 Internal hemorrhoids 06/24/2013 Stress incontinence [...] Surgery Date Site/Laterality Comments SECTION PROCEDURE: HISTORICAL BRAND MARKETING SPECIALIST SURGERY PROCEDURE: IN UNLISTED PROCEDURE HANDS/FINGERS; COMMENT: TRIGGER FINGER RELEASE. WISDOM TOOTH EXTRACTION PROCEDURE: HISTORICAL WISDOM TEETH EXTRACTION Medical History Medical History Date Comments Dermatophytosis of nail 07/05/2010 DX:[place] tophytosis of nail Hypercholesterolemia 11/26/2017 DX:Hypercho lesterolemia Hypothyroidism 11/26/2017 DX:Hypothyroidis m Internal hemorrhoids 06/24/2013 DX:Internal hemorrhoids Rectocele 05/13/2011 DX:Rectocele Stress incontinence in female 02/03/2013 DX :Stress incontinence in female Proteinuria 04/24/2018 DX:Proteinuria Type 2 diabetes mellitus wit h renal manifestations (CMS/HCC V24, CMS/HCC V28) 11/26/2017 DX:Type 2 diabetes mellitus with renal manifestations ([facility]) Family History Medical History Relation Name Comments [...] Maintenance Results * COLONOSCOPY Anesthesia - MAC; [facility] ENDOSCOPY (04/28/2024 7:52 AM EST) Anatomical [...] pathology results. Narrative 04/28/2024 7:52 AM EST [facility] GI Patient Name: Irma Moore Procedure Date: 04/28/2024 7:37 AM Date of : 1960 Age: 63 Gender: Female Note Status: Finalized Attending MD: Kenisha Crews DO, [id number] Procedure Date No Time: 04/28/2024 Procedure: Colonoscopy [...] the physician, the nurse, the anesthesiologist, the fish liver sorter and the fire range technician in the pre-procedure area in the [...] retroflexion views. Procedure Code(s): --- Professional --- 15904, Colonoscopy, flexible; with removal of tumor(s), polyp(s), or other lesion(s) by snare technique Diagnosis Code(s): --- Professional --- Z12.11, Encounter for screening for malignant neoplasm of colon K64.9, Unspecified hemorrhoids D12.2, Benign neoplasm of ascending colon CPT copyright 2020 [employer]. All rights reserved. The codes documented in this report are preliminary and upon sidewalk repairer review may be revised to meet current compliance requirements. KENISHA Crews DO 04/28/2024 7:52:14 AM This report has been signed electronically.Kenisha Crews DO Number of Addenda: 0 Note Initiated On: 04/28/2024 7:37 AM Scope Withdrawal Time: 0 hours 6 minutes 31 seconds Scope In: 7:41:16 AM Scope Out: 7:50:56 AM Endoscopy Department at [facility] - [address] [place] [id number] Procedure Note Kenisha Crews DO - 04/28/2024 [facility] GI Patient Name: Irma Moore Procedure Date: 04/28/2024 7:37 AM Date of : 1960 Age: 63 Gender: Female Note Status: Finalized Attending MD: Kenisha Crews DO, [id number] Procedure Date No Time: 04/28/2024 Procedure: Colonoscopy [...] the physician, the nurse, the anesthesiologist, the fish liver sorter and thetechnician in the pre-procedure area in [...] retroflexion views. Procedure Code(s): --- Professional --- 87090, Colonoscopy, flexible; with removal of tumor(s), polyp(s), or other lesion(s) by snare technique Diagnosis Code(s): --- Professional --- Z12.11, Encounter for screening for malignantneoplasm of colon K64.9, Unspecified hemorrhoids D12.2, Benign neoplasm of ascending colon CPT copyright 2020 [employer]. All rights reserved. The codes documented in this report are preliminary and upon sidewalk repairer reviewmay be revised to meet current compliance requirements. KENISHA Crews DO 04/28/2024 7:52:14 AM This report has been signed electronically.Kenisha Crews DO Number of Addenda: 0 Note Initiated On: 04/28/2024 7:37 AM Scope Withdrawal Time: 0 hours 6 minutes 31 seconds Scope In: 7:41:16 AM Scope Out: 7:50:56 AM Endoscopy Department at [facility] - [address] [place] [id number] IMPRESSION: - Hemorrhoids found on perianal exam. [...] DO GI~PROCEDURE ORDERABLES Final Re sult * [facility] SCREENING DIGITAL (02/07/2024 9:06 AM EDT) Anatomical Region Laterality Modality Mammography 02/06/2024 12:2 2 PM EDT Narrative 02/07/2024 9:06 AM EDT [facility] Diagnostic Imaging Department [address] [place] [id number] Patient: IRMA MOORE Mal /Age/Sex: 1960 - 63 - F Unit#: [id number] Location/Status: [facility] CLI Mnemonic[facility]ing [facility] Order[facility] Physician: CHRISTINA ZHANG MD [facility] Screening Digital - 02/06/24 - 1607 Report Status:Signed EXAM: [facility] Screening Digital EXAM DATE AND TIME: 02/06/2024 4:07 PM HISTORY: Screening. COMPARISON: 01/01/23, 08/24/21, 07/05/19 TECHNIQUE: Bilateral digital breast tomosynthesis was performed in the CC and MLO projections. Computer aided detection with Trinean 3D 3.1 was employed. TISSUE DENSITY: a. [...] Mammogram performed at [facility] [address] [place] [address] Dictating Physician: SUSAN MANUEL MD Electronically Signed by: SUSAN MANUEL MD Dic Date/Time: 02/07/24904 Sign date/Time: 02/07/24905 Procedure Note Susan Manuel MD - 03/12/2024 [facility] Diagnostic Imaging Department [address] [place] [address] Patient: IRMA MOORE Mal /Age/Sex: 1960 - 63 - F Unit#: [id number] [facility]/Ordering Site: [facility] Ordering Physician: CHRISTINA ZHANG MD [facility] Screening Digital - 02/06/24 - 1607 Report Status:Signed EXAM: [facility] Screening Digital EXAM DATE AND TIME: [...] Mammogram performed at [facility] [place] [address] Dictating Physician: SUSAN MANUEL MD Electronically Signed by: SUSAN MANUEL MD Dic Date/Time: 02/07/24904 Sign date/Time: 02/07/24905 Christina Zhang MD IMG BI PROCEDURES Final Res ult * Pap Smear (03/27/2017) HM Pap smear no interpretation abstracted us Historical Provider HEALTH MAINTENANCE Final Result from Last 3 Months or Most Recently Relevant to Health Maintenance Insurance [employer] Care Teams Fiber Locking Supervisor Relationship Specialty Start Date End Date Christina Zhang MD PCP - General Internal Medicine 04/16/24
[2025-01-16 12:55] VITALS: BMI 39.2
--- NOTE | 2025-01-19 11:43 | HO.ANESPROP2 ---
Documented by User: Aidee Truong NP 01/19/25 11:44 HPI - Anesthesia Eval Consult details Narrative: 64 yr old female for Cystoscopy with Bulkamid Type 2 DM: follows with [facility] endocrinology, A1C 6.8% Anesthesia Pre-Procedure Meds Is the patient on any of the following meds?: GLP1/DPP4 PMFSH Active Problems Active Problems: All Active Problems (Updated 11/14/24 @ 11:35 by Eleanor Zabala MD) Renal mass of unknown nature (Acute) Microscopic hematuria (Acute) Urinary incontinence, mixed (Acute) Past Medical History Medical History Kidney stone Dermatophytosis Rectocele Stress incontinence Internal hemorrhoids Hypothyroidism Hypercholesteremia Type 2 diabetes mellitus Surgical History Surgical History H/O colonoscopy History of appendectomy [place] teeth removed Status post trigger finger release History of Social History Social History Advance Directives: No Advance Directives Information Provided: Yes Meds Allergies Allergy/AdvReac Type Severity Reaction Status Date / Time No Known Allergies Allergy Verified 01/20/25 07:09 Home Medications ?Medication ?Instructions ?Recorded ?Confirmed ?Last Taken ?Type atorvastatin 40 mg tablet 40 mg PO DAILY 07/28/24 01/16/25 Unknown History dulaglutide 4.5 mg/0.5 mL 4.5 mg subcut QWEEK 07/28/24 01/16/25 Unknown History subcutaneous pen injector (Trulicity) insulin aspart U-100 100 unit/mL subcut 07/28/24 Unknown History (3 mL) subcutaneous pen levothyroxine 150 mcg tablet 150 mcg PO DAILY 07/28/24 01/16/25 Unknown History lisinopril 20 mg tablet 20 mg PO DAILY 07/28/24 01/16/25 Unknown History metformin 500 mg tablet,extended 1,000 mg PO BID 07/28/24 01/16/25 Unknown History release 24 hr insulin glargine U-300 conc 300 unit subcut 08/04/24 Unknown History unit/mL (1.5 mL) subcutaneous pen (Toujeo SoloStar U-300 Insulin) Exam Height,Weight and Vital Signs: Height 5 ft 2.5 in Weight 98.883 kg Pertinent Lab Results Pertinent Lab Results: Laboratory Tests 05/24/24 09:18 Sodium 143 Potassium 4.8 BUN 14 Creatinine 0.77 Documented by User: Jennifer Pham MD 01/20/25 07:33 [facility] Past Medical History Medical History Kidney stone Dermatophytosis Rectocele Stress incontinence Internal hemorrhoids Hypothyroidism Hypercholesteremia Type 2 diabetes mellitus Surgical History Surgical History H/O colonoscopy History of appendectomy [place] teeth removed Status post trigger finger release History of History of Problems with Anesthesia: No Social History Social History Advance Directives: No Advance Directives Information Provided: Yes Meds Allergies Allergy/AdvReac Type Severity Reaction Status Date / Time No Known Allergies Allergy Verified 01/20/25 07:09 Home Medications ?Medication ?Instructions ?Recorded ?Confirmed ?Last Taken ?Type atorvastatin 40 mg tablet 40 mg PO DAILY 07/28/24 01/16/25 Unknown History dulaglutide 4.5 mg/0.5 mL 4.5 mg subcut QWEEK 07/28/24 01/16/25 Unknown History subcutaneous pen injector (Trulicity) insulin aspart U-100 100 unit/mL subcut 07/28/24 Unknown History (3 mL) subcutaneous pen levothyroxine 150 mcg tablet 150 mcg PO DAILY 07/28/24 01/16/25 Unknown History lisinopril 20 mg tablet 20 mg PO DAILY 07/28/24 01/16/25 Unknown History metformin 500 mg tablet,extended 1,000 mg PO BID 07/28/24 01/16/25 Unknown History release 24 hr insulin glargine U-300 conc 300 unit subcut 08/04/24 Unknown History unit/mL (1.5 mL) subcutaneous pen (Toujeo SoloStar U-300 Insulin) Exam Airway Mallampati Class: II TM Dist: >3cm Neck ROM: Full Loose/Missing/Broken Teeth: No Heart: RRR Lungs: CTA Assessment and Plan Assessment Anesthesia Assessment: Anesthesia Plan Discussed and Chart Reviewed Final Anesthetic Review History of Problems with Anesthesia: No NPO: Yes ASA Class: III Final Preanesthetic Review: Meds/Allgs Chart Reviewed, Consent Obtained/Reviewed and Anes Risks/Benef Reviewed Patient Risk: Intermediate Procedure Risk: Low Anesthetic Plan Anesthetic Plan: GA Disposition: Standard PACU
[2025-01-20] VITALS (7 sets, daily range): BP systolic 132–173; BP diastolic 68–79; PULSE 86–96; RESP 15–18; TEMP 36.1–36.3; O2SAT 95–97; BMI 38.7
[2025-01-20] MEDS: Lactated Ringers 1,000 ML 100 ML IVCONT (07:33)
[2025-01-20 07:34] LABS: Glucose, Whole Blood 116 mg/dL (60-115)
--- NOTE | 2025-01-20 07:42 | MHC.SHP ---
Pre-Procedural Eval Section A - 24 Hr Update-Section A only Date of Service: 01/20/25 The patient is an INPATIENT: No The patient has been examined within 24 hours of the surgical procedure. The History & Physical has been completed within 30 days and I have reviewed it.: Yes Section B - Complete if H&P > 30 days Chief Complaint: Stress incontinence (female) (male) Allergies: Allergies Allergy/AdvReac Type Severity Reaction Status Date / Time No Known Allergies Allergy Verified 01/20/25 07:09 Plan Diagnosis/Plan: Unchanged I have reviewed the history and physical and performed a pertinent physical examination on my patient. No changes have occurred unless specified. Cystoscopy Bulkamid urethral bulking. I have discussed the risks of bulking injection to the proximal urethra to include but not limited to urine retention requiring a joshi catheter, need to repeat the procedure, hematuria, and urgency. Time Spent With Patient Time: Total time managing care of this patient today ____ minutes.
--- NOTE | 2025-01-20 07:43 | P.OP_ITS ---
Operative Note Operative Note Date of Service: 01/20/25 Narrative: Preop diagnosis: Intrinsic sphincter deficiency Postop diagnosis: Intrinsic sphincter deficiency Procedure: Cystoscopy urethral bulking with bulkamid system at the proximal urethra, 3 syringes used Surgeon: Dr. Eleanor Zabala Details of procedure: The patient was brought into the operating room placed on the OR table in supine position anesthesia was administered. Antibiotics conf irmed. The patient was placed in lithotomy position prepped and draped in the usual sterile fashion. Safety time-out was done. A 14 [place] straight catheter was used to send urine for culture. 2% lidocaine jelly was inserted transurethrally 10 mL. On inserting the 22 fr scope there was resistance, the urethral was dilated, then the 22 fr 11 cm cystoscope, with 0 degree lens with the light cord in the 6 o'clock position, was passed transurethrally, the bladder was filled with sterile water to 100 mL the bladder was visualized. With the sheath at the 5 o'clock position the needle was inserted to the 1 cm major and 0.5 mL of gel was injected there was good bulking noted. This was repeated on the 7 o'clock position. The 2nd needle was inserted into the sheath and an injection was done at the 2 o'clock position and again at the 11 o'clock position. To obtain adequate bulking of the mucosa another 1.0 mL was injected with good coaptation observed. The patient tolerated the procedure and was taken to recovery in stable condition. Complication: none EBL: minimal (<5 mL) Drains: none
== END 2025-01-20 11:39 | disposition home or self-care (01) ==
PROVIDERS: PCP Family Medicine; Visit Provider Urology
PROC: (CPT 51715; principal; 2025-01-20 08:30)
DX: N36.42 Intrinsic sphincter deficiency (ISD) (principal); N39.46 Mixed incontinence; N32.89 Other specified disorders of bladder; D17.71 Benign lipomatous neoplasm of kidney; N20.0 Calculus of kidney; N81.6 Rectocele; B35.9 Dermatophytosis, unspecified; I10 Essential (primary) hypertension; E78.00 Pure hypercholesterolemia, unspecified; E03.9 Hypothyroidism, unspecified; E11.9 Type 2 diabetes mellitus without complications; Z79.4 Long term (current) use of insulin; Z79.84 Long term (current) use of oral hypoglycemic drugs; Z79.85 Long-term (current) use of injectable non-insulin antidiabetic drugs; Z79.899 Other long term (current) drug therapy; Z98.890 Other specified postprocedural states
CPT/HCPCS: 51715; 82947; 87086; 87088; 87186; J0690; J2003; J2405; J2704; J3010; L8606

== ENCOUNTER → 2025-01-20 06:58 | Outpatient (BNV) | payer OTHER, SELFPAY | PROVIDERS: PCP Family Medicine; Visit Provider Urology | DX: N36.42 Intrinsic sphincter deficiency (ISD) (principal) | CPT/HCPCS: 51715 ==

== ENCOUNTER → 2025-01-28 09:51 | Outpatient (BNVA) | payer OTHER, SELFPAY | PROVIDERS: PCP Family Medicine; Visit Provider Urology | DX: Z46.6 Encounter for fitting and adjustment of urinary device (principal) | CPT/HCPCS: 51798 ==

== ENCOUNTER 2025-04-16 16:04 | Outpatient (REF) | payer OTHER, SELFPAY ==
--- OUTSIDE RECORDS SUMMARY | 2023-11-05 09:00 | XMS_ITS ---
Author Organization [facility] Address [address] [place] [address] Care Team Providers Care Instrument Lens Generator Name Role Phone Vicente VALERA, Sabrina Primary Care Provider Dayanara Moreira [phone] Encounters Encounter Location Date Provider Diagnosis [facility] [address] [place] [address] 11/05/2023 Dayanara Tolentino Plan Of Treatment No Information Progress Notes * TERESAIrmaDOB:1960 ( 64 yo F)Acc No.[id number]:11/05/2023 Progress Notes Patient: Irma JURADO Provider: Nba Tolentino DPM :1960 A ge:63 Y S ex:Female Date:11/05/2023 Address:[address] [place], [place] [id number] Pcp:Sabrina Zhang MD Subjective: * Chief Complaints: * * Medical History: Objective: * Vitals: Assessment: Plan: * Treatment: * Images: * The named appointment provid er may or may not be the originator of this progress note, and it is not deemed complete until electronically signed by the appointment provider. Sign off status: Pending * Provider: Nba Tolentino DPM Date: 0 11/05/2023 Generated for Mark haney/Amish/Giovannaitting on: 06/16/2024 08:52 PM EST
--- OUTSIDE RECORDS SUMMARY | 2025-04-15 23:59 | XMS_ITS | Continuity of Care Document ---
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 Role Phone Vicente VALERA, Sabrina Harris Primary Care Physician [place] [facility] [place]): [place]/15/25 [facility] [address] [place] [id number] Encounter Type: Triage Allergies, Adverse Reactions, Alerts No Known Allergies Medications Aspirin Tablet Refills 0, Maintenance, 11/01/16 7:52:32 AM EDT Start Date: 11/01/16 Status: Ordered Medication Dispense Status: Completed Total Allowed Fills: 1 Fills Dispensed: 0 atorvastatin 40 mg oral tablet 1 tablet = 40 mg, By Mouth, Daily, 0 Refills, Maintenance Start Date: 11/01/16 Status: Ordered Medication Dispense Status: Completed Total Allowed Fills: 1 Fills Dispensed: 0 estradiol 0.1 mg/g vaginal cream 42 Gm, 0 Refill(s), 0 Refills, 09/22/24 3:56:00 PM EDT, Partial fill upon patient request if the prescription is for a schedule II opioid drug. Start Date: 09/22/24 Status: Ordered Medication Dispense Status: Completed Total Allowed Fills: 1 Fills Dispensed: 0 FISH OIL FISH OIL, Refills 0, Tot. Refills 0, 02/17/08 1:04:18 PM EDT Start Date: 02/17/08 Status: Ordered Medication Dispense Status: Completed Total Allowed Fills: 1 Fills Dispensed: 0 Fish Oil By Mouth, 0 Refills, Maintenance, 11/01/16 7:52:40 AM EDT Start Date: 11/01/16 Status: Ordered Medication Dispense Status: Completed Total Allowed Fills: 1 Fills Dispensed: 0 GaviLyte-G With Lemon Flavor Pack oral powder for reconstitution 4000 mL, 0 Refill(s), 0 Refills, 09/22/24 3:56:00 PM EDT, Partial fill upon patient request if the prescription is for a schedule II opioid drug. Start Date: 09/22/24 Status: Ordered Medication Dispense Status: Completed Total Allowed Fills: 1 Fills Dispensed: 0 Insulin Aspart FlexPen 100 units/mL injectable solution See Instructions, USE 26 TO 30 UNITS SUBCUTANEOUSLY 3 TIMES A DAY BEFORE MEALS. E11.9, # 30 mL, 5 Refills, Maintenance, 02/19/25 4:07:00 PM EDT, [facility] # 302, 158.75, cm, 02/19/25 15:40:00 EDT, Height Start Date: 02/19/25 Status: Ordered Medication Dispense Status: Completed Quantity: 30.0 Unit: mL Total Allowed Fills: 6 Fills Dispensed: 0 levothyroxine 150 mcg (0.15 mg) oral tablet 1 tablet = 150 mcg, By Mouth, Daily, 0 Refills, Maintenance, 11/01/16 7:52:09 AM EDT Start Date: 11/01/16 Status: Ordered Medication Dispense Status: Completed Total Allowed Fills: 1 Fills Dispensed: 0 lisinopril 20 mg oral tablet 1, tablet, By Mouth, Daily, # 90 tablet, Refills 1, Tot. Refills 1, 01/20/22 11:42:00 AM EDT, Route to Pharmacy Electronically, [facility] # 302, 158.75, cm, 10/04/21 15:12:00 EDT, Height Start Date: 01/20/22 Status: Ordered Medication Dispense Status: Completed Quantity: 90.0 Unit: tablet Total Allowed Fills: 2 Fills Dispensed: 0 MetFORMIN (Eqv-Glucophage XR) 500 mg oral tablet, extended release 2 tablet, By Mouth, 2 times a day, ( IC FOR GLUCOPHAGE XR), # 120 tablet, 5 Refills, Maintenance, 09/22/24 4:35:00 PM EDT, [facility] # 302, 158.75, cm, 09/22/24 15:58:00 EDT, Height Start Date: 09/22/24 Status: Ordered Medication Dispense Status: Completed Quantity: 120.0 Unit: tablet Total Allowed Fills: 6 Fills Dispensed: 0 mirabegron 25 mg oral tablet, extended release 30 each, 0 Refill(s), 0 Refills, 09/22/24 3:56:00 PM EDT, Partial fill upon patient request if the prescription is for a schedule II opioid drug. Start Date: 09/22/24 Status: Ordered Medication Dispense Status: Completed Total Allowed Fills: 1 Fills Dispensed: 0 Mounjaro 5 mg/0.5 mL subcutaneous solution = 5 mg, Subcutaneous Injection, Every week, rotate injection sites. E11.9, # 2 mL, 2 Refills, Maintenance, 03/18/25 4:30:00 PM EDT, Solution, [email or web address] # [facility], Partial fill upon patient request if the prescription is for a schedule II opioid drug., 158.75, cm, 02/19/25 15:40:00 EDT, Height Start Date: 03/18/25 Status: Ordered Medication Dispense Status: Completed Quantity: 2.0 Unit: mL Total Allowed Fills: 3 Fills Dispensed: 0 Toujeo SoloStar 300 units/mL subcutaneous solution See Instructions, 122 units Subcutaneous Injection Daily 90 days. E11.9, # 40.5 mL, 3 Refills, Maintenance, 09/22/24 4:36:00 PM EDT, Solution, [facility] # 302, 158.75, cm, 09/22/24 15:58:00 EDT,Height Start Date: 09/22/24 Status: Ordered Medication Dispense Status: Completed Quantity: 40.5 Unit: mL Total Allowed Fills: 4 Fills Dispensed: 0 True metric test strips True metric test strips, See Instructions, # 120 each, Refills 11, Tot. Refills 11, Maintenance, Ptto check blood sugar 4x daily as directed for dx of E11.65, 09/06/22 1:36:00 PM EDT, Compound, 158.75, cm, 02/28/22 9:26:00 EDT, Height Start Date: 09/06/22 Status: Ordered Medication Dispense Status: Completed Quantity: 120.0 Unit: each Total Allowed Fills: 12 Fills Dispensed: 0 True Metrix Blood Glucose Test In Vitro Strip True Metrix Blood Glucose Test In Vitro Strip, See Instructions, # 100 Unknown, 0 Refills, Maintenance, use to check blood sugar 4 times daily as directed, 10/29/24 11:59:00 AM EDT, 158.75, cm, 09/22/24 15:58:00 EDT, Height Start Date: 10/29/24 Status: Ordered Medication Dispense Status: Completed Quantity: 100.0 Unit: Unknown Total Allowed Fills: 1 Fills Dispensed: 0 True Metrix Blood Glucose Test In Vitro Strip True Metrix Blood Glucose Test In Vitro Strip, See Instructions, # 100 Unknown, 0 Refills, Maintenance, use to check blood sugar 4 times daily as directed, 12/15/23 1:48:00 PM EDT, 158.75, cm, 11/01/23 15:37:00 EDT, Height Start Date: 12/15/23 Status: Ordered Medication Dispense Status: Completed Quantity: 100.0 Unit: Unknown Total Allowed Fills: 1 Fills Dispensed: 0 True Metrix Blood Glucose Test In Vitro Strip True Metrix Blood Glucose Test In Vitro Strip, See Instructions, # 100 Unknown, 0 Refills, Maintenance, use to check blood sugar 4 times daily as directed, 03/28/24 11:50:00 AM EDT, 158.75, cm, 11/01/23 15:37:00 EDT, Height Start Date: 03/28/24 Status: Ordered Medication Dispense Status: Completed Quantity: 100.0 Unit: Unknown Total Allowed Fills: 1 Fills Dispensed: 0 True Metrix Blood Glucose Test In Vitro Strip True Metrix Blood Glucose Test In Vitro Strip, See Instructions, # 100 Unknown, 0 Refills, Maintenance, USE TO CHECK BLOOD SUGAR 4 TIMES DAILY DIRECTED, 04/15/25 12:13:00 PM EST, 158.75, cm, 02/19/25 15:40:00 EDT, Height Start Date: 04/15/25 Status: Ordered Medication Dispense Status: Completed Quantity: 100.0 Unit: Unknown Total Allowed Fills: 1 Fills Dispensed: 0 True Metrix Blood Glucose Test In Vitro Strip True Metrix Blood Glucose Test In Vitro Strip, See Instructions, # 100 Unknown, 0 Refills, Maintenance, use to check blood sugar 4 times daily as directed, 02/15/24 7:39:00 PM EDT, 158.75, cm, 11/01/23 15:37:00 EDT, Height Start Date: 02/15/24 Status: Ordered Medication Dispense Status: Completed Quantity: 100.0 Unit: Unknown Total Allowed Fills: 1 Fills Dispensed: 0 True Metrix Blood Glucose Test In Vitro Strip True Metrix Blood Glucose Test In Vitro Strip, See Instructions, # 100 Unknown, 0 Refills, Maintenance, use to check blood sugar 4 times daily as directed, 09/19/24 10:29:00 AM EDT, 158.75, cm, 05/07/24 16:22:00 EST, Height Start Date: 09/19/24 Status: Ordered Medication Dispense Status: Completed Quantity: 100.0 Unit: Unknown Total Allowed Fills: 1 Fills Dispensed: 0 True Metrix Blood Glucose Test In Vitro Strip True Metrix Blood Glucose Test In Vitro Strip, See Instructions, # 100 Unknown, 0 Refills, Maintenance, use to check blood sugar 4 times daily as directed, 12/25/23 2:28:00 PM EDT, 158.75, cm, 11/01/23 15:37:00 EDT, Height Start Date: 12/25/23 Status: Ordered Medication Dispense Status: Completed Quantity: 100.0 Unit: Unknown Total Allowed Fills: 1 Fills Dispensed: 0 True Metrix Blood Glucose Test In Vitro Strip True Metrix Blood Glucose Test In Vitro Strip, See Instructions, # 120 Unknown, 3 Refills, USE TO CHECK BLOOD SUGAR 4 TIMES A DAY DIRECTED, 158.75, cm, 10/04/21 15:12:00 EDT, Height Start Date: 01/17/22 Status: Ordered Medication Dispense Status: Completed Quantity: 120.0 Unit: Unknown Total Allowed Fills: 1 Fills Dispensed: 0 True Metrix Blood Glucose Test In Vitro Strip True Metrix Blood Glucose Test In Vitro Strip, See Instructions, # 100 Unknown, 3 Refills, Maintenance, use to check blood sugar 4 times daily as directed, 05/05/24 8:17:00 AM EST, 158.75, cm, 11/01/23 15:37:00 EDT, Height Start Date: 05/05/24 Status: Ordered Medication Dispense Status: Completed Quantity: 100.0 Unit: Unknown Total Allowed Fills: 1 Fills Dispensed: 0 True Metrix Blood Glucose Test In Vitro Strip True Metrix Blood Glucose Test In Vitro Strip, See Instructions, # 100 Unknown, 0 Refills, Maintenance, USE TO CHECK BLOOD SUGAR 4 TIMES DAILY DIRECTED, 11/25/24 2:49:00 PM EDT, 158.75, cm, 09/22/2514:58:00 EDT, Height Start Date: 11/25/24 Status: Ordered Medication Dispense Status: Completed Quantity: 100.0 Unit: Unknown Total Allowed Fills: 1 Fills Dispensed: 0 True Metrix Blood Glucose Test In Vitro Strip True Metrix Blood Glucose Test In Vitro Strip, See Instructions, # 100 Unknown, 0 Refills, Maintenance, USE TO CHECK BLOOD SUGAR 4 TIMES DAILY DIRECTED, 03/13/25 12:55:00 PM EDT, 158.75, cm, 02/19/25 15:40:00 EDT, Height Start Date: 03/13/25 Status: Ordered Medication Dispense Status: Completed Quantity: 100.0 Unit: Unknown Total Allowed Fills: 1 Fills Dispensed: 0 True Metrix Blood Glucose Test In Vitro Strip True Metrix Blood Glucose Test In Vitro Strip, See Instructions, # 100 Unknown, 0 Refills, Maintenance, USE TO CHECK BLOOD SUGAR 4 TIMES DAILY DIRECTED, 12/24/24 4:20:00 PM EDT, 158.75, cm, 09/22/24 15:58:00 EDT, Height Start Date: 12/24/24 Status: Ordered Medication Dispense Status: Completed Quantity: 100.0 Unit: Unknown Total Allowed Fills: 1 Fills Dispensed: 0 True Metrix Blood Glucose Test In Vitro Strip True Metrix Blood Glucose Test In Vitro Strip, See Instructions, # 100 Unknown, 0 Refills, Maintenance, use to check blood sugar 4 times daily as directed, 11/12/23 2:52:00 PM EDT, 158.75, cm, 11/01/23 15:37:00 EDT, Height Start Date: 11/12/23 Status: Ordered Medication Dispense Status: Completed Quantity: 100.0 Unit: Unknown Total Allowed Fills: 1 Fills Dispensed: 0 True Metrix Blood Glucose Test In Vitro Strip True Metrix Blood Glucose Test In Vitro Strip, See Instructions, # 100 Unknown, 0 Refills, Maintenance, USE TO CHECK BLOOD SUGAR 4 TIMES DAILY DIRECTED, 02/04/25 2:50:00 PM EDT, 158.75, cm, 09/22/24 15:58:00 EDT, Height Start Date: 02/04/25 Status: Ordered Medication Dispense Status: Completed Quantity: 100.0 Unit: Unknown Total Allowed Fills: 1 Fills Dispensed: 0 True metrix lancets True metrix lancets, See Instructions, # 120 each, Refills 11, Tot. Refills 11, Maintenance, Pt to check blood sugar 4x daily as directed for dx of E11.65, 02/28/22 11:59:00 AM EDT, Compound, 158.75, cm, 02/28/22 9:26:00 EDT, Height Start Date: 02/28/22 Status: Ordered Medication Dispense Status: Completed Quantity: 120.0 Unit: each Total Allowed Fills: 12 Fills Dispensed: 0 TRUE PLUS PEN NEEDLES [id number] TRUE PLUS PEN NEEDLES [id number], See Instructions, # 150 each, Refills 6, Tot. Refills 6, Maintenance, Use pen needles to inject insulin 4x a day, E11.9, 07/05/20 1:37:00 PM EST, Supply, 158.75, cm, 01/22/20 8:55:00 EDT, Height Start Date: 07/05/20 Status: Ordered Medication Dispense Status: Completed Quantity: 150.0 Unit: each Total Allowed Fills: 7 Fills Dispensed: 0 TRUEplus 5-Bevel Pen [place] 31G x 5MM TRUEplus 5-Bevel Pen [place] 31G x 5MM, See Instructions, # 150 each, Refills 6, Tot. Refills 6, Maintenance, Use to inject insulin, 4 times a day. E11.9, 07/18/24 4:37:00 PM EST, Supply, 158.75, cm,05/07/24 16:22:00 EST, Height Start Date: 07/18/24 Status: Ordered Medication Dispense Status: Completed Quantity: 150.0 Unit: each Total Allowed Fills: 7 Fills Dispensed: 0 Problem List Condition Confirmation Course Effective Dates Status H ealth Status Informant Hyperlipidemia Confirmed Active Hypertension Confirmed Active Hypothyroidism Confirmed Active Severe obesity (BMI 35.0-39.9) with comorbidity Confirmed Active Type 2 diabetes mellitus Confirmed Active Social History Social History Type Response Sexual Orientation Self described orien tation: ; Straight or heterosexual Sex Sex Representation Female (finding) Patient Care team information Care Team Personnel Name: Sabrina Zhang MD Position: [facility] Physician - Primary Care Member Role: PCP Address: [address] [place] [address] Telecom: Care Team Related Persons Name: VALENTIN MOOER Insurance Providers Guarantor name: ZOIE MOORE [place] [employer] Plan Information #: 1 Payer: [employer] NON HMO PLANS Payer Identifier: NA Member Number: [id number] Group Number: [id number] Subscriber Identifier: NA Relationship to Subscriber: spouse Coverage Type: Managed Care (Private) Coverage Verification Date: Telecom: NA Address:
--- NOTE | ~2025-04-16 | MR_ITS ---
EXAMINATION: MR ABDOMEN WITHOUT THEN WITH IV CONTRAST HISTORY: N28.89 - Other specified disorders of kidney and ureter COMPARISON: Correlation is made with a retroperitoneal ultrasound dated 09/19/2024. TECHNIQUE: Axial in and out of phase T1-weighted gradient echo, axial diffusion weighted, and axial and coronal HASTE T2 with fat saturation images were obtained through the abdomen. Subsequently, fat suppressed axial and coronal T1-weighted images were obtained after the intravenous administration of 10 mL Gadavist. FINDINGS: Liver: The liver is enlarged. There is diffuse loss of signal intensity in the liver on opposed phase imaging, consistent with steatosis. There is no enhancing liver mass. The hepatic and portal veins are patent. There is no intrahepatic biliary dilatation. Gallbladder/biliary tree: No gallstones are identified. The common bile duct is normal in caliber. No intraluminal filling defects are identified to suggest choledocholithiasis. Spleen: The spleen is unremarkable. Pancreas: The pancreas is unremarkable. There is no enhancing pancreatic mass. The pancreatic duct is normal in caliber. Adrenals: The adrenal glands are unremarkable. Kidneys: There is a 1.9 x 1.5 cm fat signal intensity mass at the upper pole of the right kidney, consistent with an angiomyolipoma. An additional 2.4 x 2.6 cm exophytic fat signal intensity mass is seen at the lower pole of the right kidney, consistent with a second angiomyolipoma. There is a 5 mm fat signal intensity mass at the lower pole of the left kidney, consistent with an additional angiomyolipoma. A 5 mm cyst is noted at the lower pole of the left kidney. There is no hydronephrosis. Lymph nodes: There is no retroperitoneal lymphadenopathy in the upper abdomen. Fluid: There is no ascites in the upper abdomen. Visualized bowel: The visualized small and large bowel loops are unremarkable in appearance. Visualized bones: The visualized bones demonstrate normal marrow signal intensity. MR/MR abdomen wo/w con IMPRESSION: 1. Multiple bilateral renal angiomyolipomas as described. 2. Hepatomegaly and hepatic steatosis. Electronically signed by: Dylan Fernández MD 04/17/2025 07:[address] [facility]
--- OUTSIDE RECORDS SUMMARY | 2025-04-16 20:53 | XMS_ITS | Encounter Summary ---
Author Organization [facility] Address [address] [place] [address] Care Team Providers Care Evidence Custodian Name Role Phone Unavailable Primary Care Provider Unavailabl e Encounter Details Date Type Department Care Team (Latest Contact Info) Description 04/10/2025 Lab Requisition [facility] - Main Lab [address] [facility] [place] [phone] Cecilio Byers MD [address] [phone] Encounter for gynecological examination (general) (routine) without abnormal findings Social History Tobacco Use Types Packs/Day Years Used Date Smoking Tobacco: Never Smokeless Tobacco: Never Alcohol Use Standard Drinks/Week Comments No 0 (1 standard drink = 0.6 oz pur e alcohol) Interpersonal Safety Answer Date Record ed Physical Abuse Unrecognized value 04/28/2024 Verbal Abuse Unrecognized value 04/28/2024 Comments No Sex and Gender Information Value Date Recorded Sex Assigned at Not on file Legal Sex Female 8:25 PM EST Gender Identity Not on file Sexual Orientation Not on file documented as of this encounter Plan of Treatment Not on file documented as of this encounter Procedures Procedure Name Priority Date/Time Associated Diagnosis Comments HPV WITH REFLEX GENOTYPE Routine 04/09/2025 12:00 AM EST Encounter for gynecological examination (general) (routine) without abnormal findings PAP SMEAR Routine 04/09/2025 12:00 AM EST Encounter for gynecological examination (general) (routine) without abnormal findings documented in this encounter Results * HPV with reflex genotype (04/09/2025 12:00 AM EST) HPV Negative Negative LAB MICROBIOLOGY METHOD 04/15/2025 2:28 PM EST [facility] Brushing/Spatula Cervix uteri structure / Unknown 04/09/2025 04/14/2025 10:51 AM EST us Cecilio Byers MD LAB MOLECULAR DIAGNOSTICS [facility]AIDEN BROWN Final Result [facility] [address] [place] [id number], [place] [phone] * (ABNORMAL) Pap smear (04/09/2025 12:00 AM EST) Interpretation Atypical squamous cells of undetermined significance(A) 04/14/2025 10:51 AM [facility] at 1051 EST General Categorization Epithelial cell abnormality, see interpretation 04/14/2025 10:51 AM [facility] Specimen Adequacy Satisfactory for evaluation, endocervical/tra nsformation zone component present 04/14/2025 10:51 AM EST [facility] Pap Methodology Liquid Based Pap Test 04/14/2025 10:51 AM [facility] Disclaimer The Pap test is a screening test which carries an inherent false negative rate. These test results should be correlated with the patient's clinical findings and history. This Pap test was processed using an automated screening system. Technical cytopathology services provided by [facility], at [address] [place] [id number] (CLIA # [id number]/Ambar Heck MD, Web Analytics Developer.) 04/14/2025 10:51 AM [facility] Console Pap Interpretation Reported 04/14/2025 10:51 AM EST [facility] Brushing/Spatula Cervix uteri structure / Unknown 04/09/2025 04/10/2025 6:35 AM EST us Cecilio Byers MD LAB CYTOLOGY ORDERABLES Final Result Performing Organization Address City/State/[facility] Co de Phone Number [facility] [address] [place] [address], [place] [phone] documented in this encounter Visit Diagnoses Diagnosis Encounter for gynecological examination (general) (routine) without abnormal findings documented in this encounter
--- OUTSIDE RECORDS SUMMARY | 2025-04-16 20:53 | XMS_ITS | Clinical Summary ---
Author Organization [facility] Address [address] [place] [address] Phone Care Team Providers Care Billing Customer Service Representative Name Role Phone Unavailable Primary Care Provider Unavailabl e Allergies No known active allergies Medications magnesium [...] 2 diabetes mellitus wit h renal manifestations ([facility] V24, [facility] V28) 11/26/2017 Internal hemorrhoids 06/24/2013 Stress incontinence in female 02/03/2013 Rectocele 05/13/2011 Dermatophytosis of nail 07/05/2010 Encounters Date Type Department Care Team Description 04/10/2025 Lab Requisition [facility] Lab [address] [address] Cecilio Byers MD Encounter for gynecological examination (general) (routine) without abnormal findings from Last 3 Months Immunizations Immunization Administration Dates Next Due Influenza trivalent, 0.5mL, preservative free (Fluarix; FluLaval; Fluzone) ages 6mo and older (Afluria) 3 years and older 03/04/2015 Pneumococcal polysaccharide 23 valent (Pneumovax 23) 2yo and older 07/26/2016 Tdap Tetanus diptheria acell ular pertussis (Boostrix; Adacel) 7yo and older 07/05/2010 Surgical History Surgery Date Site/Laterality Comments SECTION PROCEDURE: HISTORICAL GENERAL ENGINEER SURGERY PROCEDURE: NE UNLISTED PROCEDURE HANDS/FINGERS; COMMENT: TRIGGER FINGER RELEASE. WISDOM TOOTH EXTRACTION PROCEDURE: HISTORICAL WISDOM TEETH EXTRACTION Medical History Medical History Date Comments Dermatophytosis of nail 07/05/2010 DX:[place] tophytosis of nail Hypercholesterolemia 11/26/2017 DX:Hypercho lesterolemia Hypothyroidism 11/26/2017 DX:Hypothyroidis m Internal hemorrhoids 06/24/2013 DX:Internal hemorrhoids Rectocele 05/13/2011 DX:Rectocele Stress incontinence in female 02/03/2013 DX :Stress incontinence in female Proteinuria 04/24/2018 DX:Proteinuria Type 2 diabetes mellitus wit h renal manifestations (CMS/HCC V24, CMS/HCC V28) 11/26/2017 DX:Type 2 diabetes mellitus with renal manifestations ([facility]) Family History Medical History Relation Name Comments [...] 1970 Diabetes: Annual Retina Eye Exam 1970 RSV Immunization Adult Patients (1 - Risk 50-74 years 1-dose series) 2010 Pneumococcal Vaccine: 50+ Years (2 of 2 - PCV) 07/26/2017 07/26/2016 Cholesterol Screening (Lipid Panel) 04/29/2022 HIV Screening 04/29/2022 Hepatitis C Screening 04/29/2022 Social Influencers of Health Screening 04/29/2022 Diabetes: Annual Urine Albumin-Creatinine Ratio (uACR) 05/13/2022 Diabetes: Blood Sugar Control Test (HGBA1C) 05/13/2022 Hypertension/CHF/CAD Annual BMP Blood Test 04/28/2024 Depression Screening 05/28/2024 COVID-19 Vaccine ( season) 2025 Influenza Vaccine (#1) 2025 , 05/16/2022, 02/09/2021, Additional history exists Breast Cancer Screening 02/06/2026 02/07/20 24, 01/01/2023, 08/24/2021, Additional history exists Colorectal Cancer Screening: Colonoscopy 04/28/2027 04/28/2024 Cervical Cancer Screening: HPV 04/09/2030 04/09/2025 DTaP,Tdap,and Td Vaccines (3 - Td or [...] Procedure Name Priority Date/Time Associated Diagnosis Comments PAP SMEAR Routine 04/09/2025 12:00 AM EST Encounter for gynecological examination (general) (routine) without abnormal findings HPV WITH REFLEX GENOTYPE Routine 04/09/2025 12:00 AM EST Encounter for gynecological examination (general) (routine) without abnormal findings COLONOSCOPY Routine 04/28/2024 7:52 AM EST Encounter for screening for malignant neoplasm of colon SAHIL SCREENING DIGITAL Routine 02/07/2024 9:06 AM EDT Encounter for screening mammogram for malignant neoplasm of breast from Last 3 Months or Most Recently Relevant to Health Maintenance Results * HPV with reflex genotype (04/09/2025 12:00 AM EST) HPV Negative Negative LAB MICROBIOLOGY METHOD 04/15/2025 2:28 PM EST [facility] Brushing/Spatula Cervix uteri structure / Unknown 04/09/2025 04/14/2025 10:51 AM EST Cecilio Byers MD LAB MOLECULAR DIAGNOSTICS KAIDEN BROWN Final Result [facility] [address] [place] [address], * (ABNORMAL) Pap smear (04/09/2025 12:00 AM EST) Interpretation Atypical squamous cells of undetermined significance(A) 04/14/2025 10:51 AM EST [facility] at 1051 EST General Categorization Epithelial cell abnormality, see interpretation 04/14/2025 10:51 AM EST [facility] Specimen Adequacy Satisfactory for evaluation, endocervical/tra nsformation zone component present 04/14/2025 10:51 AM [facility] Pap Methodology Liquid Based Pap Test 04/14/2025 10:51 AM [facility] Disclaimer The Pap test is a screening test which carries an inherent false negative rate. These test results should be correlated with the patient's clinical findings and history. This Pap test was processed using an automated screening system. Technical cytopathology services provided by [facility], at [address] [place] [address] (CLIA # [id number]/Ambar Heck MD, Government Services Professional.) 04/14/2025 10:51 AM [facility] Console Pap Interpretation Reported 04/14/2025 10:51 AM [facility] Brushing/Spatula Cervix uteri structure / Unknown 04/09/2025 04/10/2025 6:35 AM EST us Cecilio Byers MD LAB CYTOLOGY ORDERABLES Final Result [facility] [address] [place] [address], * COLONOSCOPY Anesthesia - MAC; [facility] ENDOSCOPY (04/28/2024 7:52 AM EST) [...] pathology results. Narrative 04/28/2024 7:52 AM EST [facility] Patient Name: Zoie Moore Procedure Date: 04/28/2024 7:37 AM Date of : 1960 Age: 63 Gender: Female Note Status: Finalized Attending MD: Kenisha Crews DO, [id number] Procedure Date No Time: 04/28/2024 Procedure: Colonoscopy [...] the physician, the nurse, the anesthesiologist, the general production manager and the healthcare technician in the pre-procedure area in the [...] retroflexion views. Procedure Code(s): --- Professional --- 70346, Colonoscopy, flexible; with removal of tumor(s), polyp(s), or other lesion(s) by snare technique Diagnosis Code(s): --- Professional --- Z12.11, Encounter for screening for malignant neoplasm of colon K64.9, Unspecified hemorrhoids D12.2, Benign neoplasm of ascending colon CPT copyright 2020 [employer]. All rights reserved. The codes documented in this report are preliminary and upon supply chain tech review may be revised to meet current compliance requirements. KENISHA Crews DO 04/28/2024 7:52:14 AM This report has been signed electronically.Kenisha Crews DO Number of Addenda: 0 Note Initiated On: 04/28/2024 7:37 AM Scope Withdrawal Time: 0 hours 6 minutes 31 seconds Scope In: 7:41:16 AM Scope Out: 7:50:56 AM Endoscopy Department at [facility] - [address] [place] [phone] Procedure Note Kenisha Crews DO - 04/28/2024 [facility] Patient Name: Zoie Moore Procedure Date: 04/28/2024 7:37 AM Date of : 1960 Age: 63 Gender: Female Note Status: Finalized Attending MD: Kenisha Crews DO, [id number] Procedure Date No Time: 04/28/2024 Procedure: Colonoscopy [...] the physician, the nurse, the anesthesiologist, the general production manager and thetechnician in the pre-procedure area in [...] retroflexion views. Procedure Code(s): --- Professional --- 20800, Colonoscopy, flexible; with removal of tumor(s), polyp(s), or other lesion(s) by snare technique Diagnosis Code(s): --- Professional --- Z12.11, Encounter for screening for malignantneoplasm of colon K64.9, Unspecified hemorrhoids D12.2, Benign neoplasm of ascending colon CPT copyright 2020 [employer]. All rights reserved. The codes documented in this report are preliminary and upon supply chain tech reviewmay be revised to meet current compliance requirements. KENISHA Crews DO 04/28/2024 7:52:14 AM This report has been signed electronically.Kenisha Crews DO Number of Addenda: 0 Note Initiated On: 04/28/2024 7:37 AM Scope Withdrawal Time: 0 hours 6 minutes 31 seconds Scope In: 7:41:16 AM Scope Out: 7:50:56 AM Endoscopy Department at [facility] - [address] [place] [phone] IMPRESSION: - Hemorrhoids found on perianal exam. [...] DO GI~PROCEDURE ORDERABLES Final Re sult * SAHIL SCREENING DIGITAL (02/07/2024 9:06 AM EDT) Anatomical Region Laterality Modality Mammography 02/06/2024 12:2 2 PM EDT Narrative 02/07/2024 9:06 AM EDT [facility] Diagnostic Imaging Department [address] [place] [id number] Patient: ZOIE MOORE Mal /Age/Sex: 1960 - 63 - F Unit#: [id number] Location/Status: SPDIMAM/REG CLI Mnemonic/Ordering Site: DIGSC/SPMAM Ordering Physician: SABRINA ZHANG MD [facility] Screening Digital - 02/06/24 - 1607 Report Status:Signed EXAM: [facility] Screening Digital EXAM DATE AND TIME: 02/06/2024 4:07 PM HISTORY: Screening. COMPARISON: 01/01/23, 08/24/21, 07/05/19 TECHNIQUE: Bilateral digital breast tomosynthesis was performed in the CC and MLO projections. Computer aided detection with Exec 3D 3.1 was employed. TISSUE DENSITY: a. [...] Mammogram performed at [facility] [place] [address] Dictating Physician: SUSAN MANUEL MD Electronically Signed by: SUSAN MANUEL MD Dic Date/Time: 02/07/24904 Sign date/Time: 02/07/24905 Procedure Note Susan Manuel MD - 03/12/2024 [facility] Diagnostic Imaging Department [address] [place] [address] Patient: ZOIE MOORE Mal King/Age/Sex: 1960 - 63 - F Unit#: [id number] Location/Status: SPDIMAM/REG CLI Mnemonic/Ordering Site: DIGSC/SPMAM Ordering Physician: SABRINA ZHANG MD [facility] Screening Digital - 02/06/24 - 1607 Report Status:Signed EXAM: [facility] Screening Digital EXAM DATE AND TIME: 02/06/2024 4:07 PM HISTORY: Screening. COMPARISON: 01/01/23, 08/24/21, 07/05/19 TECHNIQUE: Bilateral digital breast tomosynthesis was performed in the CCand MLO projections. Computer aided detection with Exec 3D 3.1was employed. TISSUE DENSITY: a. The [...] Mammogram performed at [facility] [place] [address] Dictating Physician: SUSAN MANUEL MD Electronically Signed by: SUSAN MANUEL MD Dic Date/Time: 02/07/24904 Sign date/Time: 02/07/24905 us Sabrina Zhang MD IMG BI PROCEDURES Final Res ult from Last 3 Months or Most Recently Relevant to Health Maintenance Insurance [employer]
--- OUTSIDE RECORDS SUMMARY | 2025-04-16 20:53 | XMS_ITS | Patient Health Record ---
Author Organization [facility] [place] Address [address] [place] [address] Care Team Providers Care Contract Paralegal Name Role Phone Vicente VALERA, Sabrina Primary Care Provider Dayanara Moreira Unavailable [phone] Reason For Referral No Information Plan Of Treatment No Information Insurance Providers Payer Name Payer Address Payer Phone Subscriber Number Group Number Insured Name Patient Relationship to Insured Coverage Start Date Coverage End Date [employer] [address] [place] [address] [id number] Irma Haji Self - patient is the insured
== END 2025-04-16 16:05 | disposition home or self-care (01) ==
LOC: HO.MRI 16:04
PROVIDERS: PCP Family Medicine; Visit Provider Urology
DX: N28.89 Other specified disorders of kidney and ureter (principal)
CPT/HCPCS: 74183; A9585

== ENCOUNTER → 2025-04-16 16:14 | Outpatient (BNV) | payer OTHER, SELFPAY | PROVIDERS: PCP Family Medicine; Visit Provider Radiology Diagnostic Radiology | DX: N28.89 Other specified disorders of kidney and ureter (principal) | CPT/HCPCS: 74183 ==

== ENCOUNTER 2025-04-20 15:24 | Outpatient (AMB) | payer OTHER, SELFPAY ==
--- OUTSIDE RECORDS SUMMARY | 2025-04-17 23:59 | XMS_ITS | Continuity of Care Document ---
Author Organization [facility] Address [address] [place] [address]- Care Team Providers Care Aircraft Captain Name Role Phone Vicente VALERA, Sabrina Harris Primary Care Phys[id number] Date[facility]s): [facility]18/25 - 04/17/25 [facility] [address] [place] [id number] Encounter Type: Triage Allergies, Adverse Reactions, Alerts [...] 5 Refills, Maintenance, 02/19/25 4:07:00 PM EDT, [facility], 158.75, cm, 02/19/25 [...] 11:42:00 AM EDT, Route to Pharmacy Electronically, [facility], 158.75, cm, 10/04/21 15:12:00 EDT, Height Start Date: 01/20/22 Status: Ordered Medication Dispense Status: Completed Quantity: 90.0 Unit: tablet Total Allowed Fills: 2 Fills Dispensed: 0 MetFORMIN (Eqv-Glucophage XR) 500 mg oral tablet, extended release 2 tablet, By Mouth, 2 times a day, ( IC FOR GLUCOPHAGE XR), # 120 tablet, 5 Refills, Maintenance, 09/22/24 4:35:00 PM EDT, [facility], 158.75, cm, 09/22/24 [...] Refills, Maintenance, 03/18/25 4:30:00 PM EDT, Solution, [facility], Partial fill upon patient [...] Refills, Maintenance, 09/22/24 4:36:00 PM EDT, Solution, [facility], 158.75, cm, 09/22/24 15:58:00 [...] Fills Dispensed: 0 TRUE PLUS PEN NEEDLES [id number] TRUE PLUS PEN NEEDLES [id number], See Instructions, # 150 each, Refills 6, Tot. Refills 6, Maintenance, Use pen needles to inject insulin 4x a day, E11.9, 07/05/20 1:37:00 PM EST, Supply, 158.75, cm, 01/22/20 8:55:00 EDT, Height Start Date: 07/05/20 Status: Ordered Medication Dispense Status: Completed Quantity: 150.0 Unit: each Total Allowed Fills: 7 Fills Dispensed: 0 TRUEplus 5-Bevel Pen [place] 31G x 5MM TRUEplus 5-Bevel Pen [place] 31G x 5MM, See Instructions, # 150 [...] Team Personnel Name: Sabrina Zhang MD Position: [facility] Physician - Primary Care Member Role: PCP Address: [address] [place] [address] Telecom: Care Team Related Persons Name: VALENTIN MOORE Insurance Providers Guarantor name: ZOIE MOORE [employer] Plan Information #: 1 Payer: [employer] NON HMO PLANS Payer Identifier: NA Member Number: [id number] Group Number: [id number] Subscriber Identifier: NA Relationship to Subscriber: spouse Coverage Type: Managed Care (Private) Coverage Verification Date: NA Telecom: NA Address:
--- NOTE | 2025-04-20 15:36 | A.OFFVIS_ITS ---
Intake Visit Reasons: Bulkamid follow up Intake Note: Patient presents today for bulkamid follow up Urology Medications: none Blood Thinner: none PVR: 0ml Mortician Investigator Required: No Accompanied by: Self / Same As Patient Allergies No Known Allergies Allergy (Verified 04/20/25 15:37) Medication List - Last Reconciled 04/20/25 by Eleanor Zabala MD atorvastatin 40 mg PO DAILY ciprofloxacin HCl 500 mg PO BID 7 days dulaglutide (Trulicity) 4.5 mg subcut QWEEK insulin aspart U-100 subcut insulin glargine U-300 conc (Toujeo SoloStar U-300 Insulin) 130 units subcut levothyroxine 150 mcg PO DAILY lisinopril 20 mg PO DAILY metformin ER 1,000 mg PO BID mirabegron ER (Myrbetriq) 50 mg PO DAILY HPI Comments Details: 04/20/2025--Irma is a 64-year-old female she is status post urethral bulking on 01/20/2025 for stress urinary incontinence she is here for follow-up. Urinalysis is negative for leukocytes negative for blood no signs of infection. History of Present Illness The patient is a 64-year-old individual presenting for follow-up of mixed urinary incontinence. Comorbidity diabetes and obesity. The patient underwent urethral bulking on 01/20/25 for stress urinary incontinence. Initially, the patient experienced improvement, but currently reports persistent leakage, especially with urgency. The patient had been on Myrbetriq for bladder spasms, which was discontinued post-procedure, and is now being considered for re-initiation. We will restart Myrbetriq 50 mg daily. An MRI of the abdomen on 04/16/25 revealed multiple bilateral renal angiomyolipomas, which are benign tumors of the kidney. Results - Urinalysis: Negative for leukocytes and blood, no signs of infection - MRI of the abdomen (04/16/25): Multiple bilateral renal angiomyolipomas, benign Plan 1. Mixed Urinary Incontinence - Re-initiate medication for bladder spasms to manage urgency and leakage. - Consideration of alternative treatments such as Botox if medication does not improve symptoms. - Follow-up telehealth to assess treatment efficacy. 2. Bilateral Renal Angiomyolipomas - Monitor with a follow-up ultrasound in one year to assess for changes in size or stability. 11/14/24 History of Present Illness - The patient is a 64-year-old female presenting with bladder spasms and urinary incontinence. - Bladder spasms: Medication prescribed in July has been somewhat effective. - Pruritus: Significant itching in the perineal area, leading to self-inflicted cuts. - Urinary incontinence: Leakage associated with coughing is common. - Intervention: Discussed procedure to inject gel for support and reduce incontinence. - Kidney lesion: Tiny fatty lesion in the kidney, MRI planned in six months for reevaluation. Urinary Symptoms Review - Urinary incontinence occurs with coughing. - The patient wears a pad to manage incontinence but experiences itching in the perineal area. - The patient reports bladder spasms, which have been somewhat controlled with medication. Results - Ultrasound: Normal kidneys and bladder; tiny fatty lesion in the kidney. Discussion Notes We discussed the option of a minimally invasive procedure to inject gel at the urethral opening to provide support and reduce urinary incontinence. The procedure is performed as an outpatient with local anesthesia and sedation, and it typically takes about 15 minutes. We expect about a 65% improvement in leakage related to coughing. The gel can last for at least five years, and if necessary, it can be reapplied. We also discussed the potential side effect of urinary retention post-procedure, which may require the use of a pediatric catheter temporarily. The patient was advised to stop Myrbetriq five days before the procedure to ensure optimal bladder function post-procedure. An MRI is planned in six months to reevaluate the tiny fatty lesion in the kidney. Follow- up will be scheduled to assess the effectiveness of the intervention and decide on further management, including the potential reintroduction of medication. Plan - Plan to perform a minimally invasive procedure to inject gel at the urethral opening to reduce urinary incontinence. - The patient will stop Myrbetriq five days before the procedure to ensure optimal bladder function post-procedure. - An MRI is scheduled in six months to reevaluate the tiny fatty lesion in the kidney. - Follow-up will be scheduled to assess the effectiveness of the intervention and decide on further management, including the potential reintroduction of medication. Patient Instructions - Stop taking Myrbetriq five days before the scheduled procedure. - Follow up with the clinic to assess the effectiveness of the procedure and discuss further management options. - An MRI will be scheduled in six months to check the kidney lesion. Patient was informed and verbally consented to the use of an ambient scribe for clinic note documentation during this visit. 08/04/24--Irma is a very pleasant 64-year-old female patient of Dr. Zhang. She has a past medical history of hyperlipidemia, hypertension, nephrolithiasis, rectocele, hypothyroidism, and hemorrhoids. She presents to the office today as a new patient for mixed urinary incontinence. In discussion with the patient today she reports a longstanding history of mixed urinary in continence however feels this has become more bothersome as she has been experiencing vaginal itching due to Nancy pads. She reports utilizing 1-2 Nancy pads per day. She does report a previous history of 4 vaginal births. She reports following up with shirring tender recently at which time she was started on Estrace cream and recommendations were made for urology referral as patient had been reporting mixed urinary incontinence. We discussed at length potential causes of mixed urinary incontinence as well as further treatment options and risks and benefits of these treatment options. In office urinalysis results reviewed with the patient today. Microscopic hematuria noted. She denies any previous history of workplace chemical exposure and or nicotine dependence. She denies urinary urgency, urinary frequency, nocturia, hematuria, dysuria, foul smelling urine, changes to urinary stream, flank pain, fever, and or chills. We discussed obtaining retroperitoneal ultrasound for further assessment evaluation. She discusses her upcoming vacation on Sunday. She otherwise offers no other issues or concerns at this time. [facility] Medical History Kidney stone Dermatophytosis Rectocele Stress incontinence Internal hemorrhoids Hypothyroidism Hypercholesteremia Type 2 diabetes mellitus Surgical History H/O colonoscopy History of appendectomy [place] teeth removed Status post trigger finger release History of Social History Patient Tobacco Use Status: Never used Tobacco Review of Systems Const All systems reviewed & are unremarkable except as noted in HPI and below Reports no additional complaints Eyes Reports no additional complaints ENT Reports no additional complaints Card Reports no additional complaints Resp Reports no additional complaints GI Reports no additional complaints Reports as per HPI Musc Reports no additional complaints Skin/Breast Reports system reviewed and no additional complaints, except as documented Neuro Reports no additional complaints Psych Reports no additional complaints Endo Reports no additional complaints Germán/Lymph Reports no additional complaints Aller/Immun Reports no additional complaints Office Procedures Post Void Residual Post Residual Void Post Void Residual (PVR): 0 [id number] Void Residual by ultrasound Assessment & Plan Assessment & Plan (1) Urinary incontinence, mixed: Code(s): N39.46 - Mixed incontinence Category: Medical (2) JOANIE (stress urinary incontinence, female): Code(s): N39.3 - Stress incontinence (female) (male) Category: Medical (3) Renal angiomyolipoma: Code(s): D17.71 - Benign lipomatous neoplasm of kidney Category: Medical Plan Plan 1. Mixed Urinary Incontinence - Re-initiate medication for bladder spasms to manage urgency and leakage. - Consideration of alternative treatments such as Botox if medication does not improve symptoms. - Follow-up telehealth to assess treatment efficacy. 2. Bilateral Renal Angiomyolipomas - Monitor with a follow-up ultrasound in one year to assess for changes in size or stability. Orders: Orders AMB Urinalysis Automated Today Z13.9 - Encounter for screening, unspecified AMB Post Void Residual by ultrasound Today N39.3 - Stress incontinence (female) (male), N39.46 - Mixed incontinence Medications: New mirabegron ER (Myrbetriq) 50 mg PO DAILY 90 tabs 3RF Scribe Plan - Not visible on output: Patient was informed and verbally consented to the use of an ambient scribe for clinic note documentation during this visit. Coding Level of Care Code Est Pt Level 4 (05828) Diagnoses Urinary incontinence, mixed N39.46 JOANIE (stress urinary incontinence, female) N39.3 Renal angiomyolipoma D17.71 CPT Codes Post Residual Void - PVR CPT Code: 84856-Jroh Void Residual by ultrasound ([id number])
--- OUTSIDE RECORDS SUMMARY | 2025-04-20 20:02 | XMS_ITS | Encounter Summary ---
Author Organization [facility] Address [address] [place] [address] Care Team Providers Care Medical Insurance Verifier Name Role Phone Unavailable Primary Care Provider Unavailabl e Encounter Details Date Type Department Care Team (Latest Contact Info) Description 04/10/2025 Lab Requisition [facility] - Main Lab [address] [facility] [place] [phone] Cecilio Byers MD [address] [phone] Encounter for gynecological examination (general) (routine) without [...] LAB MICROBIOLOGY METHOD 04/15/2025 2:28 PM EST [facility] Brushing/Spatula Cervix uteri structure / Unknown 04/09/2025 04/14/2025 10:51 AM EST us Cecilio Byers MD LAB MOLECULAR DIAGNOSTICS KAIDEN BROWN Final Result [facility] [address] [place] [address], [place] [phone] * (ABNORMAL) Pap smear (04/09/2025 12:00 AM EST) Interpretation Atypical squamous cells of undetermined significance(A) 04/14/2025 10:51 AM [facility] at 1051 EST General Categorization Epithelial cell abnormality, see interpretation 04/14/2025 10:51 AM [facility] Specimen Adequacy Satisfactory for evaluation, endocervical/tra nsformation zone component present 04/14/2025 10:51 AM EST [facility] Pap Methodology Liquid Based Pap Test 04/14/2025 10:51 AM [facility] Disclaimer The Pap test is a screening test which carries an inherent false negative rate. These test results should be correlated with the patient's clinical findings and history. This Pap test was processed using an automated screening system. Technical cytopathology services provided by [facility], at [address] [place] [id number] (CLIA # [id number]/Ambar Heck MD, Home Visitor.) 04/14/2025 10:51 AM [facility] Console Pap Interpretation Reported 04/14/2025 10:51 AM EST [facility] Brushing/Spatula Cervix uteri structure / Unknown 04/09/2025 04/10/2025 6:35 AM EST us Cecilio Byers MD LAB CYTOLOGY ORDERABLES Final Result Performing Organization Address City/State/[facility] Co de Phone Number [facility] [address] [place] [address], [place] [phone] documented in this encounter Visit Diagnoses Diagnosis Encounter for gynecological examination (general) (routine) without abnormal findings documented in this encounter
--- OUTSIDE RECORDS SUMMARY | 2025-04-20 20:02 | XMS_ITS | Clinical Summary ---
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 ([facility] V24, [facility] V28) 11/26/2017 Internal hemorrhoids 06/24/2013 Stress incontinence in female 02/03/2013 Rectocele 05/13/2011 Dermatophytosis of nail 07/05/2010 Encounters Date Type Department Care Team Description 04/10/2025 Lab Requisition [facility] - Main Lab [address] [facility] [place] [address] Cecilio Byers MD Encounter for [...] Surgery Date Site/Laterality Comments SECTION PROCEDURE: HISTORICAL METROLOGY SPECIALIST SURGERY PROCEDURE: [place] UNLISTED PROCEDURE HANDS/FINGERS; COMMENT: TRIGGER FINGER RELEASE. WISDOM TOOTH EXTRACTION PROCEDURE: HISTORICAL WISDOM TEETH EXTRACTION Medical History Medical History Date Comments Dermatophytosis of nail 07/05/2010 DX:[place] tophytosis of nail Hypercholesterolemia 11/26/2017 DX:Hypercho lesterolemia Hypothyroidism 11/26/2017 DX:Hypothyroidis m Internal hemorrhoids 06/24/2013 DX:Internal hemorrhoids Rectocele 05/13/2011 DX:Rectocele Stress incontinence in female 02/03/2013 DX :Stress incontinence in female Proteinuria 04/24/2018 DX:Proteinuria Type 2 diabetes mellitus wit h renal manifestations (CMS/HCC V24, CMS/HCC V28) 11/26/2017 DX:Type 2 diabetes mellitus with renal manifestations ([facility]) Family History Medical History Relation Name Comments [...] LAB MICROBIOLOGY METHOD 04/15/2025 2:28 PM EST [facility] Brushing/Spatula Cervix uteri structure / Unknown 04/09/2025 04/14/2025 10:51 AM EST Cecilio Byers MD LAB MOLECULAR DIAGNOSTICS KAIDEN BROWN Final Result [facility] [address] [place] [address], * (ABNORMAL) Pap smear (04/09/2025 12:00 AM EST) Interpretation Atypical squamous cells of undetermined significance(A) 04/14/2025 10:51 AM EST [facility] at 1051 EST General Categorization Epithelial cell abnormality, see interpretation 04/14/2025 10:51 AM EST [facility] Specimen Adequacy Satisfactory for evaluation, endocervical/tra nsformation zone component present 04/14/2025 10:51 AM [facility] Pap Methodology Liquid Based Pap Test 04/14/2025 10:51 AM [facility] Disclaimer The Pap test is a screening test which carries an inherent false negative rate. These test results should be correlated with the patient's clinical findings and history. This Pap test was processed using an automated screening system. Technical cytopathology services provided by [facility], at [address] [place] [address] (CLIA # [id number]/Ambar Heck MD, Medical Office Asst.) 04/14/2025 10:51 AM [facility] Console Pap Interpretation Reported 04/14/2025 10:51 AM [facility] Brushing/Spatula Cervix uteri structure / Unknown 04/09/2025 04/10/2025 6:35 AM EST us Cecilio Byers MD LAB CYTOLOGY ORDERABLES Final Result [facility] [address] [place] [address], * COLONOSCOPY Anesthesia - MAC; [facility] [...] results. Narrative 04/28/2024 7:52 AM EST [facility] GI Patient Name: Zoie Moore Procedure Date: 04/28/2024 7:37 AM Date of : 1960 Age: 63 Gender: Female Note Status: Finalized Attending MD: Kenisha Crews DO, [id number] Procedure Date No Time: 04/28/2024 Procedure: Colonoscopy [...] the physician, the nurse, the anesthesiologist, the security sales manager and the pharmacy technician program director in the pre-procedure area in the endoscopy [...] retroflexion views. Procedure Code(s): --- Professional --- 92959, Colonoscopy, flexible; with removal of tumor(s), polyp(s), or other lesion(s) by snare technique Diagnosis Code(s): --- Professional --- Z12.11, Encounter for screening for malignant neoplasm of colon K64.9, Unspecified hemorrhoids D12.2, Benign neoplasm of ascending colon CPT copyright 2020 [employer]. All rights reserved. The codes documented in this report are preliminary and upon emergency management system director review may be revised to meet current compliance requirements. KENISHA Crews DO 04/28/2024 7:52:14 AM This report has been signed electronically.Kenisha Crews DO Number of Addenda: 0 Note Initiated On: 04/28/2024 7:37 AM Scope Withdrawal Time: 0 hours 6 minutes 31 seconds Scope In: 7:41:16 AM Scope Out: 7:50:56 AM Endoscopy Department at [facility] - [address] [place] [phone] Procedure Note Kenisha Crews DO - 04/28/2024 [facility] GI Patient Name: Zoie Moore Procedure Date: 04/28/2024 7:37 AM Date of : 1960 Age: 63 Gender: Female Note Status: Finalized Attending MD: Kenisha Crews DO, [id number] Procedure Date No Time: 04/28/2024 Procedure: Colonoscopy [...] the physician, the nurse, the anesthesiologist, the security sales manager and thetechnician in the pre-procedure area [...] retroflexion views. Procedure Code(s): --- Professional --- 16421, Colonoscopy, flexible; with removal of tumor(s), polyp(s), or other lesion(s) by snare technique Diagnosis Code(s): --- Professional --- Z12.11, Encounter for screening for malignantneoplasm of colon K64.9, Unspecified hemorrhoids D12.2, Benign neoplasm of ascending colon CPT copyright 2020 [employer] [employer]. All rights reserved. The codes documented in this report are preliminary and upon emergency management system director reviewmay be revised to meet current compliance requirements. KENISHA Crews DO 04/28/2024 7:52:14 AM This report has been signed electronically.Kenisha Crews DO Number of Addenda: 0 Note Initiated On: 04/28/2024 7:37 AM Scope Withdrawal Time: 0 hours 6 minutes 31 seconds Scope In: 7:41:16 AM Scope Out: 7:50:56 AM Endoscopy Department at [facility] - [address] [place] [phone] IMPRESSION: - Hemorrhoids found on perianal exam. [...] PM EDT Narrative 02/07/2024 9:06 AM EDT [facility] Diagnostic Imaging Department [address] [place] [phone] Patient: ZOIE MOORE Mal /Age/Sex: 1960 - 63 - F Unit#: [id number] Location/Status: SPDIMAM/REG CLI Mnemonic/Ordering Site: DIGSC/SPMAM Ordering Physician: SABRINA ZHANG MD [facility] Screening Digital - 02/06/24 - 1607 Report Status:Signed EXAM: [facility] Screening Digital EXAM DATE AND TIME: 02/06/2024 4:07 PM HISTORY: Screening. COMPARISON: 01/01/23, 08/24/21, 07/05/19 TECHNIQUE: Bilateral digital breast tomosynthesis was performed in the CC and MLO projections. Computer aided detection with All-Scrap 3D 3.1 was employed. TISSUE DENSITY: a. [...] Mammogram performed at [facility] [place] [address] Dictating Physician: SUSAN MANUEL MD Electronically Signed by: SUSAN MANUEL MD Dic Date/Time: 02/07/24904 Sign date/Time: 02/07/24905 Procedure Note Susan Manuel MD - 03/12/2024 [facility] Diagnostic Imaging Department [address] [place] [address] Patient: ZOIE MOORE Mal King/Age/Sex: 1960 - 63 - F Unit#: [id number] Location/Status: SPDIMAM/REG CLI Mnemonic/Ordering Site: DIGSC/SPMAM Ordering Physician: SABRINA ZHANG MD [facility] Screening Digital - 02/06/24 - 1607 Report Status:Signed EXAM: [facility] Screening Digital EXAM DATE AND TIME: 02/06/2024 4:07 PM HISTORY: Screening. COMPARISON: 01/01/23, 08/24/21, 07/05/19 TECHNIQUE: Bilateral digital breast tomosynthesis was performed in the CCand MLO projections. Computer aided detection with All-Scrap 3D 3.1was employed. TISSUE DENSITY: a. The [...] Mammogram performed at [facility] [place] [address] Dictating Physician: SUSAN MANUEL MD Electronically Signed by: SUSAN MANUEL MD Dic Date/Time: 02/07/24904 Sign date/Time: 02/07/24905 us Sabrina Zhang MD IMG BI PROCEDURES Final Res ult from Last 3 Months or Most Recently Relevant to Health Maintenance Insurance [employer]
== END 2025-04-20 16:02 | disposition home or self-care (01) ==
LOC: HO.HUSH 15:24
PROVIDERS: PCP Family Medicine; Visit Provider Urology
DX: N39.46 Mixed incontinence (principal); N39.3 Stress incontinence (female) (male); D17.71 Benign lipomatous neoplasm of kidney; Z13.9 Encounter for screening, unspecified
CPT/HCPCS: 99214

== ENCOUNTER → 2025-04-20 15:24 | Outpatient (BNVA) | payer OTHER, SELFPAY | PROVIDERS: PCP Family Medicine; Visit Provider Urology | DX: N39.46 Mixed incontinence (principal) | CPT/HCPCS: 51798; 81003 ==

== ENCOUNTER 2025-05-14 15:42 | Outpatient (AMB) | payer OTHER, SELFPAY ==
--- NOTE | 2025-05-14 15:43 | MHC.OFFVIS ---
Intake Visit Reasons: 6M/MRI/UA(SET) Intake Note: Patient is present for 6M/MRI/UA Urology Medication:MIRABEGRON Antibiotic Allergy:NONE Blood Thinner:NONE Enterprise Solutions Architect Required: No Allergies No Known Allergies Allergy (Verified 05/14/25 16:12) Medication List - Last Reconciled 05/14/25 by NERY Voss atorvastatin 40 mg PO DAILY ciprofloxacin HCl 500 mg PO BID 7 days dulaglutide (Trulicity) 4.5 mg subcut QWEEK insulin aspart U-100 subcut insulin glargine U-300 conc (Toujeo SoloStar U-300 Insulin) 130 units subcut levothyroxine 150 mcg PO DAILY lisinopril 20 mg PO DAILY metformin ER 1,000 mg PO BID mirabegron ER (Myrbetriq) 50 mg PO DAILY HPI Comments Details: Irma is a pleasant 64-year-old female patient of Dr. Zhang. She has a past medical history of hyperlipidemia, hypertension, nephrolithiasis, rectocele, hypothyroidism, and hemorrhoids. She is being followed up on today via telehealth for her mixed urinary incontinence. In discussion with the patient today she reports although she underwent urethral bulking procedure with Dr. Dino Hackett 12/2024 she continues to experience episodes of stress incontinence. She does however feel lower urinary tract symptoms of urinary urgency and frequency have improved. She discusses most recently when she followed up with Dr. Sun she also reviewed her most recent MRI renal imaging. MRI renal mass protocol 04/21 noted multiple bilateral renal angiomyolipomas. We did discuss further treatment options of stress incontinence and risks and benefits of these treatment options. All questions were answered. She reports compliance with Myrbetriq 50 mg daily. She denies hematuria, dysuria, foul smelling urine, changes to urinary stream, flank pain, fever, and or chills. She otherwise offers no other issues or concerns at this time. FORMERLY [facility], [facility] Medical History Kidney stone Dermatophytosis Rectocele Stress incontinence Internal hemorrhoids Hypothyroidism Hypercholesteremia Type 2 diabetes mellitus Surgical History H/O colonoscopy History of appendectomy [place] teeth removed Status post trigger finger release History of Social History Patient Tobacco Use Status: Never used Tobacco Review of Systems Const All systems reviewed & are unremarkable except as noted in HPI and below Physical Exam Const General: cooperative Orientation/consciousness: patient oriented x3 Resp Effort & Inspection: able to speak in complete sentences Neuro General: patient oriented x3 Psych Speech and movement: Clear speech present Affect: normal affect Attitude: cooperative Thought process: Normal thought process present Thought content: Normal thought content present Insight: Fair insight present (Psych) Judgement: Fair judgement present (Psych) Telehealth Telehealth Telehealth Platform: Telephone Location of provider rendering services: practice address Location of patient: address on file Patient Identification confirmed using: Name, : Yes Telehealth method: video Patient verbally consented to treatment: Yes Patient verbally consented to billing insurance company: Yes Patient informed of any privacy concerns related to visit: Yes Results Reviewed Results Reviewed: Ordering Physician: Eleanor Zabala MD Date of Service: 04/16/25 Procedure(s): MR abdomen wo/w con Accession Number(s): [id number] cc: Eleanor Zabala MD; Sabrina Zhang MD~ Reason for Exam: N28.89 - Other specified disorders of kidney and ureter EXAMINATION: MR ABDOMEN WITHOUT THEN WITH IV CONTRAST HISTORY: N28.89 - Other specified disorders of kidney and ureter COMPARISON: Correlation is made with a retroperitoneal ultrasound dated 09/19/2024. TECHNIQUE: Axial in and out of phase T1-weighted gradient echo, axial diffusion weighted, and axial and coronal HASTE T2 with fat saturation images were obtained through the abdomen. Subsequently, fat suppressed axial and coronal T1-weighted images were obtained after the intravenous administration of 10 mL Gadavist. FINDINGS: Liver: The liver is enlarged. There is diffuse loss of signal intensity in the liver on opposed phase imaging, consistent with steatosis. There is no enhancing liver mass. The hepatic and portal veins are patent. There is no intrahepatic biliary dilatation. Gallbladder/biliary tree: No gallstones are identified. The common bile duct is normal in caliber. No intraluminal filling defects are identified to suggest choledocholithiasis. Spleen: The spleen is unremarkable. Pancreas: The pancreas is unremarkable. There is no enhancing pancreatic mass. The pancreatic duct is normal in caliber. Adrenals: The adrenal glands are unremarkable. Kidneys: There is a 1.9 x 1.5 cm fat signal intensity mass at the upper pole of the right kidney, consistent with an angiomyolipoma. An additional 2.4 x 2.6 cm exophytic fat signal intensity mass is seen at the lower pole of the right kidney, consistent with a second angiomyolipoma. There is a 5 mm fat signal intensity mass at the lower pole of the left kidney, consistent with an additional angiomyolipoma. A 5 mm cyst is noted at the lower pole of the left kidney. There is no hydronephrosis. Lymph nodes: There is no retroperitoneal lymphadenopathy in the upper abdomen. Fluid: There is no ascites in the upper abdomen. Visualized bowel: The visualized small and large bowel loops are unremarkable in appearance. Visualized bones: The visualized bones demonstrate normal marrow signal intensity. IMPRESSION: 1. Multiple bilateral renal angiomyolipomas as described. 2. Hepatomegaly and hepatic steatosis. Assessment & Plan Assessment & Plan (1) JOANIE (stress urinary incontinence, female): Code(s): N39.3 - Stress incontinence (female) (male) Category: Medical (2) Renal angiomyolipoma: Code(s): D17.71 - Benign lipomatous neoplasm of kidney Category: Medical (3) Urinary incontinence, mixed: Code(s): N39.46 - Mixed incontinence Category: Medical Plan Patient continues to report stress incontinence; we did review further treatment options and risks and benefits of these treatment options. She denies any UTI like symptoms. Will continue with surveillance monitoring of angiolipomas. All questions were answered. Continue Myrbetriq as discussed and prescribed. Will refer to pelvic floor therapy for further assessment evaluation. We did discussed worsening symptoms. Follow-up in 4 months with PVR; status post completion of pelvic floor therapy; or sooner with any issues, concerns, and or questions. Orders: Orders PT Pelvic Floor Evaluation 05/14/25 N39.3 - Stress incontinence (female) (male) Medications: Discontinued ciprofloxacin HCl Discontinued Reason: Doctor's Order 500 mg PO BID 7 days 14 tabs 0RF Patient Instructions: The patient had an opportunity to ask questions regarding the treatment plan. All questions were answered. Physical exam, labs, and imaging were discussed and reviewed in detail. As well as risks, benefits, and discussion of treatment choices. No major barriers to understanding were identified. The patient expressed understanding and agreement with the above treatment plan. The patient was made aware they should contact our office by phone for worsening of their current condition, the appearance of new symptoms, or with any questions or concerns. Compliance is encouraged with any medications and follow up testing that is ordered. It is a privilege to be allowed the opportunity to participate in? your urological care.? Again, if you have any questions or concerns If you have any questions or concerns please do not hesitate to contact me. The office is [phone]. This note is constructed using voice recognition software. While every effort has been made to ensure accuracy toolsmith errors may have been included. Yours sincerely, NERY Voss Coding Level of Care Code Tele Est Pt Level 3 (43636) Add On Problem Visit Only Diagnoses JOANIE (stress urinary incontinence, female) N39.3 Renal angiomyolipoma D17.71 Urinary incontinence, mixed N39.46
--- OUTSIDE RECORDS SUMMARY | 2025-05-14 19:28 | XMS_ITS | Clinical Summary ---
Author Organization [facility] Address [address] [place] [address] Phone Care Team Providers Care Bin Tripper Operator Name Role Phone Unavailable Primary Care Provider [...] Department Care Team Description 04/10/[address] 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 WISDOM TOOTH EXTRACTION PROCEDURE: HISTORICAL WISDOM TEETH EXTRACTION Medical History Medical History Date Comments Dermatophytosis of nail 07/05/2010 DX:[place] tophytosis of nail Hypercholesterolemia 11/26/2017 DX:Hypercho lesterolemia [...] on file Sexual Orientation Not on file Last Filed Vital Signs Vital Sign Reading [...] LAB MICROBIOLOGY METHOD 04/15/2025 2:28 PM EST [facility] Brushing/Spatula Cervix uteri structure / Unknown 04/09/2025 04/14/2025 10:51 AM EST Cecilio Byers MD LAB MOLECULAR DIAGNOSTICS KAIDEN BROWN Final Result [facility] [address] [place] [address], * (ABNORMAL) Pap smear (04/09/2025 12:00 AM EST) Interpretation Atypical squamous cells of undetermined significance(A) 04/14/2025 10:51 AM EST [facility] at 1051 EST General Categorization Epithelial cell abnormality, see interpretation 04/14/2025 10:51 AM EST [facility] Specimen Adequacy Satisfactory for evaluation, endocervical/tra nsformation zone component present 04/14/2025 10:51 AM EST [facility] Pap Methodology Liquid Based Pap Test 04/14/2025 10:51 AM EST [facility] Disclaimer The Pap test is a screening test which carries an inherent false negative rate. These test results should be correlated with the patient's clinical findings and history. This Pap test was processed using an automated screening system. Technical cytopathology services provided by [facility], at [address] [place] [address] (CLIA # [id number]/Ambar Heck MD, Rn Urology.) 04/14/2025 10:51 AM [facility] Console Pap Interpretation Reported 04/14/2025 10:51 AM [facility] Brushing/Spatula Cervix uteri structure / Unknown 04/09/2025 04/10/2025 6:35 AM EST us Cecilio Byers MD LAB CYTOLOGY ORDERABLES Final Result Performing Organization Address City/State/[facility] Co de Phone Number [facility] [address] [place] [address], * COLONOSCOPY Anesthesia - MAC; [facility] ENDOSCOPY (04/28/2024 7:52 AM EST) Anatomical [...] pathology results. Narrative 04/28/2024 7:52 AM EST [facility] GI Patient Name: Zoie Moore Procedure Date: 04/28/2024 7:37 AM Date of : 1960 Age: 63 Gender: Female Note Status: Finalized Attending MD: Kenisha Crews DO, [id number] Procedure Date No Time: 04/28/2024 Procedure: Colonoscopy [...] the physician, the nurse, the anesthesiologist, the casino cashier manager and the aerial survey technician in the pre-procedure area in the [...] retroflexion views. Procedure Code(s): --- Professional --- 78733, Colonoscopy, flexible; with removal of tumor(s), polyp(s), or other lesion(s) by snare technique Diagnosis Code(s): --- Professional --- Z12.11, Encounter for screening for malignant neoplasm of colon K64.9, Unspecified hemorrhoids D12.2, Benign neoplasm of ascending colon CPT copyright 2020 [employer]. All rights reserved. The codes documented in this report are preliminary and upon tire changer aircraft review may be revised to meet current compliance requirements. KENISHA Crews DO 04/28/2024 7:52:14 AM This report has been signed electronically.Kenisha Crews DO Number of Addenda: 0 Note Initiated On: 04/28/2024 7:37 AM Scope Withdrawal Time: 0 hours 6 minutes 31 seconds Scope In: 7:41:16 AM Scope Out: 7:50:56 AM Endoscopy Department at [facility] - [address] [place] [phone] Procedure Note Kenisha Crews DO - 04/28/2024 [facility] GI Patient Name: Zoie Moore Procedure Date: 04/28/2024 7:37 AM Date of : 1960 Age: 63 Gender: Female Note Status: Finalized Attending MD: Kenisha Crews DO, [id number] Procedure Date No Time: 04/28/2024 Procedure: Colonoscopy [...] the physician, the nurse, the anesthesiologist, the casino cashier manager and thetechnician in the pre-procedure area [...] retroflexion views. Procedure Code(s): --- Professional --- 56138, Colonoscopy, flexible; with removal of tumor(s), polyp(s), or other lesion(s) by snare technique Diagnosis Code(s): --- Professional --- Z12.11, Encounter for screening for malignantneoplasm of colon K64.9, Unspecified hemorrhoids D12.2, Benign neoplasm of ascending colon CPT copyright 2020 [employer]. All rights reserved. The codes documented in this report are preliminary and upon tire changer aircraft reviewmay be revised to meet current compliance requirements. KENISHA Crews DO 04/28/2024 7:52:14 AM This report has been signed electronically.Kenisha Crews DO Number of Addenda: 0 Note Initiated On: 04/28/2024 7:37 AM Scope Withdrawal Time: 0 hours 6 minutes 31 seconds Scope In: 7:41:16 AM Scope Out: 7:50:56 AM Endoscopy Department at [facility] - [address] [place] [phone] IMPRESSION: - Hemorrhoids found on perianal exam. [...] PM EDT Narrative 02/07/2024 9:06 AM EDT [facility] Diagnostic Imaging Department [address] [place] [address] Patient: ZOIE MOORE /Age/Sex: 1960 - 63 - F Unit#: [id number] Location/Status: SPDIMAM/REG CLI Mnemonic/Ordering Site: [facility] Ordering Physician: SABRINA ZHANG MD [employer] Screening Digital - 02/06/24 - 1607 Report Status:Signed EXAM: [facility] Screening Digital EXAM DATE AND TIME: 02/06/2024 4:07 PM HISTORY: Screening. COMPARISON: 01/01/23, 08/24/21, 07/05/19 TECHNIQUE: Bilateral digital breast tomosynthesis was performed in the CC and MLO projections. Computer aided detection with [employer] 3D 3.1 was employed. TISSUE DENSITY: a. [...] Mammogram performed at [facility] [place] [address] Dictating Physician: SUSAN MANUEL MD Electronically Signed by: SUSAN MANUEL MD Dic Date/Time: 02/07/24904 Sign date/Time: 02/07/24905 Procedure Note Susan Manuel MD - 03/12/2024 [facility] Diagnostic Imaging Department [address] [place] [id number] Patient: ZOIE MOORE.O.B./Age/Sex: 1960 - 63 - F Unit#: [id number] Location/Status: SPDIMAM/REG CLI Mnemonic/Ordering Site: [facility] Ordering Physician: SABRINA ZHANG MD [facility] Screening Digital - 02/06/24 - 1607 Report Status:Signed EXAM: [facility] Screening Digital EXAM DATE AND TIME: 02/06/2024 4:07 PM HISTORY: Screening. COMPARISON: 01/01/23, 08/24/21, 07/05/19 TECHNIQUE: Bilateral digital breast tomosynthesis was performed in the CCand MLO projections. Computer aided detection with [employer] 3D 3.1was employed. TISSUE DENSITY: a. The [...] Mammogram performed at [facility] [place] [address] Dictating Physician: SUSAN MANUEL MD Electronically Signed by: SUSAN MANUEL MD Dic Date/Time: 02/07/24904 Sign date/Time: 02/07/24905 Sabrina Zhang MD IMG BI PROCEDURES Final Res ult from Last 3 Months or Most Recently Relevant to Health Maintenance Insurance [employer]
--- OUTSIDE RECORDS SUMMARY | 2025-05-14 19:28 | XMS_ITS | Encounter Summary ---
Author Organization [facility] Address [address] [place] [address] Care Team Providers Care Rn Corrections Name Role Phone Unavailable Primary Care Provider Unavailabl e Encounter Details Date Type Department Care Team (Latest Contact Info) Description 04/10/2025 Lab Requisition [facility] - Main Lab [address] [facility] [place] [phone] Cecilio Byers MD [address] [phone] Encounter for gynecological examination (general) (routine) without [...] LAB MICROBIOLOGY METHOD 04/15/2025 2:[address] [facility] Brushing/Spatula Cervix uteri structure / Unknown 04/09/2025 04/14/2025 10:51 AM EST us Cecilio Byers MD LAB MOLECULAR DIAGNOSTICS KAIDEN BROWN Final Result [facility] [address] [place] [id number], [place] [phone] * (ABNORMAL) Pap smear (04/09/2025 12:00 AM EST) Interpretation Atypical squamous cells of undetermined significance(A) 04/14/2025 10:51 AM [facility] at 1051 EST General Categorization Epithelial cell abnormality, see interpretation 04/14/2025 10:51 AM [facility] Specimen Adequacy Satisfactory for evaluation, endocervical/tra nsformation zone component present 04/14/2025 10:[address] [facility] Pap Methodology Liquid Based Pap Test 04/14/2025 10:51 AM [facility] Disclaimer The Pap test is a screening test which carries an inherent false negative rate. These test results should be correlated with the patient's clinical findings and history. This Pap test was processed using an automated screening system. Technical cytopathology services provided by [facility], at [address] [place] [address] (CLIA # [id number]/Ambar Heck MD, Scraper Burrer.) 04/14/2025 10:51 AM [facility] Console Pap Interpretation Reported 04/14/2025 10:[address] [facility] Brushing/Spatula Cervix uteri structure / Unknown 04/09/2025 04/10/2025 6:35 AM EST us Cecilio Byers MD LAB CYTOLOGY ORDERABLES Final Result Performing Organization Address City/State/[facility] Co de Phone Number [facility] [address] [place] [address], [place] [phone] documented in this encounter Visit Diagnoses Diagnosis Encounter for gynecological examination (general) (routine) without abnormal findings documented in this encounter
== END 2025-05-14 16:24 | disposition home or self-care (01) ==
LOC: HO.HUSH 15:42
PROVIDERS: PCP Family Medicine; Visit Provider Nurse Practitioner Family
DX: N39.3 Stress incontinence (female) (male) (principal); D17.71 Benign lipomatous neoplasm of kidney; N39.46 Mixed incontinence
CPT/HCPCS: 99213; G2211